=== PATIENT | female | born 1950 | race Caucasian/White ===

== ENCOUNTER → 2016-09-24 | Outpatient (CLI) | payer MEDICARE ==
[~2016-09-24] MED LIST: CALC-671 PO; CALC-78 PO; CEFD300C3 PO; CEPH500C PO; CHOL200018 PO; DICL75TA2 PO; GARL10002 PO; GLUC1CAP37 PO; GLUCOSAMINE; HYPR15DR5 OU; LEVO50TA6 PO; LISI1TAB10 PO; LISI40TA PO; LNS30CCR; LVT.05T PO; OLME40TA14; OMEP20CA12 PO
--- NOTE | 2016-09-24 14:09 | Diagnostic Imaging Report ---
PROCEDURE: CT chest without contrast. TECHNIQUE: Multiple contiguous axial images were obtained through the chest without the use of intravenous contrast. INDICATION: Followup nodules. COMPARISON: 09/13/15 FINDINGS: There are calcified granulomas seen in the lungs. Previously seen 3 mm nodule in the right lower lobe appears to be calcified also at this time with no concerning noncalcified pulmonary nodule noted. No significant consolidation or mass is seen either. There is minimal scarring in the inferior lingula without a change. Calcified granulomas in the right hilum and in the mediastinum also seen. No significantly enlarged lymph nodes are evident otherwise. No axillary lymphadenopathy is seen. Sections in the upper abdomen demonstrate cholecystectomy clips. The osseous structures demonstrate mild scoliosis convex to the right in the thoracic spine. IMPRESSION: Calcified granulomas. Minimal scarring in the inferior lingula. Dictated by: Dictated on workstation # [id number]
== END ==
LOC: RAD 13:18
PROVIDERS: ATTEND Nurse Practitioner Family
DX: J84.10 Pulmonary fibrosis, unspecified (principal)
CPT/HCPCS: 71250

== ENCOUNTER 2016-12-13 13:00 | Outpatient (RCR) | payer MEDICARE | END 2016-12-15 | disposition home or self-care (01) | LOC: PULM 13:00 | PROVIDERS: ATTEND Nurse Practitioner Family | DX: J44.9 Chronic obstructive pulmonary disease, unspecified (principal); R06.02 Shortness of breath; J30.9 Allergic rhinitis, unspecified | CPT/HCPCS: 99211 ==

== ENCOUNTER 2017-02-19 13:00 | Outpatient (RCR) | payer MEDICARE | END 2017-03-18 | disposition home or self-care (01) | LOC: PULM 13:00 | PROVIDERS: ATTEND Nurse Practitioner Family | DX: J44.9 Chronic obstructive pulmonary disease, unspecified (principal); R06.02 Shortness of breath; J30.9 Allergic rhinitis, unspecified ==

== ENCOUNTER → 2017-06-10 | Outpatient (CLI) | payer MEDICARE | LOC: CARD 12:26 | PROVIDERS: ATTEND Family Medicine | DX: R07.9 Chest pain, unspecified (principal); I34.0 Nonrheumatic mitral (valve) insufficiency | CPT/HCPCS: 93306 ==

== ENCOUNTER → 2017-06-11 | Outpatient (CLI) | payer MEDICARE ==
[~2017-06-11] MED LIST changes: +CATHETER FLUSH 10 ML SYR IV PRN; +REGADENOSON 0.4 MG/5 ML SYR (LEXISCAN) IV ONE
[2017-06-11 13:20] VITALS: BP 156/71
[2017-06-11 13:27] VITALS: BP 154/68
--- NOTE | 2017-06-12 11:17 | STRESS TEST ---
DATE OF SERVICE: 06/11/2017 RESTING AND POST REGADENOSON TECHNETIUM 99M TETROFOSMIN SPECT CT IMAGING ORDERING PHYSICIAN: Dr. Manriquez. PRIMARY PHYSICIAN: Dr. Manriquez. CLINICAL DIAGNOSIS: Chest pain. Baseline images were carried out after injection of 10.81 mCi of technetium-99m Tetrofosmin. This was followed by 0.4 mg regadenoson and 29.8 mCi of lawn and garden technician technetium-99m Tetrofosmin for stress imaging. The electrocardiogram showed sinus rhythm with nonspecific ST abnormality and occasional isolated premature ventricular contractions. She noted some shortness of breath with the regadenoson infusion and some shortness of breath, which resolved in a few minutes. Review of images at rest and following stress indicates a small amount of anteroseptal perfusion defect, which appears transient. Gated images show normal global left ventricular systolic function with normal regional wall motion. Left ventricular ejection fraction is calculated to be 78%. Left ventricular end diastolic volume is 28 mL. TID is absent (1.19). CONCLUSIONS: 1. The study is suggestive of a small amount of anteroseptal ischemia. 2. Normal regional wall motion. 3. Normal global left ventricular systolic function with a calculated ejection fraction of 78%. Job ID: [id number] DocumentID: [id number] Dictated Date: 06/12/2017 09:35:18 Food Taster Date: 06/12/2017 11:16:18 Dictated By: HUGO LUCAS MD, MA, FACP, FACC,
== END ==
LOC: CARD 11:37
PROVIDERS: ATTEND Family Medicine
DX: R07.9 Chest pain, unspecified (principal)
CPT/HCPCS: 78452; 93017

== ENCOUNTER 2017-06-25 09:59 | Day surgery (SDC) | payer MEDICARE ==
[2017-06-25] VITALS (11 sets, daily range): BP systolic 116–152; BP diastolic 48–66
[~2017-06-25] VITALS: Ht 154.9 cm; Wt 86.2 kg
[~2017-06-25 09:59] MED LIST changes: -CATHETER FLUSH 10 ML SYR IV PRN; -REGADENOSON 0.4 MG/5 ML SYR (LEXISCAN) IV ONE
[2017-06-25] MEDS ORDERED: NS IV 1000 ML 1,000 ML ONE (10:04)
[2017-06-25] MEDS ORDERED: HEParin (CATH LAB) 2,000 ML IV ONE (10:04)
[2017-06-25] MEDS ORDERED: NS IV 1000 ML 1,000 ML IV SCH ×2 (10:15→12:55)
[2017-06-25 10:36] LABS: HEMOGLOBIN 12.1 G/DL (11.5-16.0); MEAN PLATELET VOLUME 11.5 FL (7.4-10.4); RED BLOOD COUNT 4.09 10^6/uL (4.35-5.85); RED CELL DISTRIBUTION WIDTH 14.1 % (10.0-14.5)
[2017-06-25] MEDS ORDERED: PROP15DR OU (10:43)
[2017-06-25] MEDS ORDERED: CALC300T4 PO (10:43)
[2017-06-25] MEDS ORDERED: GARL10002 PO (10:43)
[2017-06-25] MEDS ORDERED: BUDE10.2 IH (10:43)
[2017-06-25] MEDS ORDERED: OMG1KC PO (10:43)
[2017-06-25] MEDS ORDERED: MONT10TA21 PO (10:43)
[2017-06-25] MEDS ORDERED: DICL75TA2 PO (10:43)
[2017-06-25] MEDS ORDERED: GLUC-113 PO (10:43)
[2017-06-25] MEDS ORDERED: CHOL10007 PO (10:43)
[2017-06-25] MEDS ORDERED: UMEC62.5 IH (10:43)
[2017-06-25] MEDS ORDERED: RT-ALBUINH IH (10:44)
[2017-06-25] MEDS ORDERED: CETI10TA20 PO (10:44)
[2017-06-25] MEDS ORDERED: ACET-2650 PO (10:45)
[2017-06-25 10:49] LABS: INR 0.9 (0.8-1.4); PROTHROMBIN TIME PATIENT 12.5 SEC (12.2-14.7)
[2017-06-25 11:00] LABS: ALANINE AMINOTRANSFERASE 13 U/L (0-55); ALBUMIN 4.5 GM/DL (3.2-4.5); ALKALINE PHOSPHATASE 87 U/L (40-136); BILIRUBIN,TOTAL 0.6 MG/DL (0.1-1.0); BUN/CREATININE RATIO 23; CALCIUM 9.9 MG/DL (8.5-10.1); CARBON DIOXIDE 29 MMOL/L (21-32); CHLORIDE 104 MMOL/L (98-107); CHOLESTEROL 209 MG/DL (< 200); CREATININE SERUM 0.75 MG/DL (0.60-1.30); GFR ESTIMATED > 60; GLUCOSE 93 MG/DL (70-105); HDL CHOLESTEROL 64 MG/DL (40-60); SODIUM 139 MMOL/L (135-145); TOTAL PROTEIN 7.1 GM/DL (6.4-8.2); TRIGLYCERIDES 130 MG/DL (<150); VLDL CHOLESTEROL 26 MG/DL (5-40)
[2017-06-25] MEDS ORDERED: diphenhydrAMINE 50 MG/ML INJ (BENADRYL) ONE (11:54)
[2017-06-25] MEDS ORDERED: MIDAZOLAM 5 MG/5 ML (VERSED) VIAL ONE (11:54)
[2017-06-25] MEDS ORDERED: fentaNYL INJECTION 100 MCG/2 ML AMP ONE (11:54)
[2017-06-25] MEDS ORDERED: LIDOCAINE 1% INJ 50 ML (XYLOCAINE) VIAL ONE (11:57)
--- NOTE | 2017-06-25 12:54 | Cardiac Procedure Note-CS/ASA ---
Pre-Procedure Note Pre-Op Procedure Note H&P Reviewed The H&P was reviewed, patient examined and no changes noted. Date H&P Reviewed: Jun 25, 2017 Time H&P Reviewed: 12:30 Conscious Sedation Pre-Proced Time Reviewed: 12:30 ASA Class: 3 Airway Mallampati Classification: ([place] appropriate class) I. II. III, IV Lungs Heart ASA score ASA 1: a normal healthy patient ASA 2: a patient with a mild systemic disease (mid diabetes, controlled hypertension, obesity ASA 3: a patient with a severe systemic disease that limits activity (angina , COPD, prior Myocardial infarction) ASA 4: a patient with an incapacitating disease that is a constant threat to life (CHF, renal failure) ASA 5: a moribund patient not expected to survive 24 hrs. (ruptured aneurysm) ASA 6: a declared brain patient whose organs are being harvested. For emergent operations, add the letter E after the classification Grade 2 Sedation Plan: Analgesia, Amnesia, Plan communicated to team members, Discussed options with patient/fam, Discussed risks with patient/fam Note The patient is an appropriate candidate to undergo the planned procedure, sedation, and anesthesia. The patient immediately re-assessed prior to indication. HUGO LUCAS MD FACP FAC CCDS Jun 25, 2017 12:54
--- NOTE | 2017-06-25 12:59 | Discharge Inst-Post CATH ---
Discharge Inst-CATH Post Cardiac Cath D/C Inst Follow Up/Plan F/u with Dr Arzate in 2 - 3 weeks CARDIAC CATH DISCHARGE INSTRUCTIONS *Hold Metformin for 48 hours post heart cath. ACTIVITY * Go Home directly and rest. * Limit activity of the leg (or wrist if it was used) for 7 days including aerobics, swimming, jogging, bicycling, etc. * Restrict stair-climbing for 7 days if possible, if not, climb up with your non -cath leg, then bring together on the same step. * Avoid lifting, pushing, pulling or excessive movement of the affected extremity for 7 days. * Customary sexual activity may be resumed after 2 days-use caution not to use a position that strains or causes pain to the affected extremity. * No driving for 24 hours. * NO SMOKING. * Avoid straining for bowel movements for 7 days. * Gentle walking on level ground is allowed. * Returning to work will depend on the type of procedure and the results. Your doctor will discuss this with you. CALL YOUR DOCTOR FOR ANY OF THE FOLLOWING: *If bleeding from the puncture site occurs- Apply gentle pressure to site with clean cloth and call your doctor or EMS. * If a knot or lump forms under the skin, increases in size, or causes pain. * If bruising appears to be worsening or moving further down your leg instead of disappearing. * Temperature above 101 F. CARE OF YOUR GROIN INCISION; * Bruising or purple discoloration of the skin near the puncture site is common. * You may shower only, no bathtub bathing for 5 days. Be careful to avoid slipping as your leg may feel stiff. * If a closure device was used on your femoral artery, please see the attached guide regarding care of the device and your leg. * REMOVE the dressing from your groin the next day after your procedure in the shower. CARE OF YOUR WRIST INCISION; * Bruising or purple discoloration of the skin near the puncture site is common. * You may shower. * DO NOT submerge wrist. * Remove dressing in 24 hours. HUGO ARZATE MD [facility] CCDS Jun 25, 2017 12:58
--- NOTE | 2017-06-25 12:59 | Discharge Inst-Cardiology ---
Discharge Inst-Cardiac Discharge Medications Continued Medications: Acetaminophen (Tylenol Arthritis) 650 Mg Tablet.er 1300 MG PO TID PRN for PAIN-MILD, TAB TAKES 2 (650MG) TABLETS Albuterol Sulfate (Ventolin Hfa) 1 Puff Puff 2 PUFF IH Q4H PRN for SHORTNESS OF BREATH, PUFF 1 PUFF = 90 MCG Budesonide/Formoterol Fumarate (Symbicort 160-4.5 Mcg Inhaler) 10.2 Gm Hfa.aer.ad 2 PUFF IH DAILY, INHALER Calcium Carbonate (Tums) 300 Mg Tab.chew 300 MG PO TID PRN for INDIGESTION, TAB Cetirizine HCl (Zyrtec) 10 Mg Tablet 10 MG PO HS, TAB Cholecalciferol (Vitamin D3) (Vitamin D3) 1,000 Unit Capsule 1000 UNIT PO DAILY, CAP Diclofenac Sodium (Diclofenac Sodium) 75 Mg Tablet.dr 75 MG PO DAILY, TAB Diclofenac Sodium (Diclofenac Sodium) 75 Mg Tablet.dr 75 MG PO HS PRN for ARTHRITIS PAIN, TAB Garlic (Garlic) 1,000 Mg Capsule 2000 MG PO DAILY, CAP TAKES 2 (1000MG) CAPSULES Gluc 2Kcl/Chondr/Eugenie Hy/Hy AC (Glucosamine & Chondroitin Cap) 1 Each Capsule 2 CAP PO DAILY, CAP Levothyroxine Sodium (Levothyroxine Sodium) 50 Mcg Tablet 50 MCG PO DAILY, TAB Lisinopril/Hydrochlorothiazide (Lisinopril-Hctz 20-25 mg Tab) 1 Each Tablet 1 TAB PO DAILY, TAB Montelukast Sodium (Singulair) 10 Mg Tablet 10 MG PO HS, TAB Gore 3 Polyunsat Fatty Acids (Fish Oil 1,000 mg Capsule) 1,000 Mg Cap 1000 MG PO DAILY, CAP Omeprazole (Omeprazole) 20 Mg Capsule.dr 20 MG PO DAILY, CAP Propylene Glycol/Peg 400 (Systane 0.3-0.4% Eye Drops) 15 Ml Drops 2 DROPS OU QID, DROPS Umeclidinium Cuthbert (Incruse Ellipta) 62.5 Mcg Blst.w.dev 1 PUFF IH DAILY HUGO LUCAS MD [facility] CCDS Jun 25, 2017 12:59
[2017-06-25] MEDS ORDERED: PATIENT MAY USE OWN MEDS, ALL PO SCH (13:00)
--- NOTE | 2017-06-25 15:05 | CARDIAC CATHETERIZATION ---
DATE OF SERVICE: 06/25/2017 The patient is a 67-year-old lady who has multiple coronary artery disease risk factors, nonspecific chest discomfort, and an abnormal stress test, which had indicated some anteroseptal ischemia. Given all of these data, cardiac catheterization was carried out today after having obtained an informed consent. PROCEDURE DESCRIPTION: She was brought to the cardiac catheterization laboratory in a fasting state. Right groin was prepared and draped in the usual sterile fashion, 1% lidocaine for local anesthesia. Modified Seldinger technique was used to advance a 5-Haitian sheath in right femoral artery. Angiography of the right femoral artery was carried out through the sheath. A 5-Haitian JL4 catheter was used for left coronary angiography. A 5-Haitian JR4 catheter was used for right coronary angiography. A 5-Haitian pigtail catheter was used for left heart catheterization and left ventricular angiography. Mynx was used to achieve hemostasis following sheath removal. She tolerated the procedure well. HEMODYNAMICS: Left ventricular end-diastolic pressure following coronary angiography was 13 mmHg. There is no significant pressure gradient on pullback across the aortic valve. Ascending aortic pressure was 140/65 with a mean of 100 mmHg. LEFT VENTRICULAR ANGIOGRAPHY: Left ventricular angiography was carried out in the right anterior oblique projection. Global left ventricular systolic function is normal. No regional wall abnormality is seen. The left ventricular ejection fraction is approximately 65%. No significant mitral regurgitation is seen. CORONARY ANGIOGRAPHY: Left main coronary artery, left anterior descending artery, left circumflex artery, right coronary artery all appear angiographically within normal limits. Right coronary artery is dominant. CONCLUSIONS: 1. No angiographically significant coronary artery disease. 2. Normal global left ventricular systolic function with ejection fraction of approximately 65%. 3. No significant mitral regurgitation. 4. Left ventricular end-diastolic pressure at the top limit of normal. DISCUSSION AND RECOMMENDATIONS: Based on the results of the study, it appears appropriate to continue a conservative approach. Risk factor modification has been reviewed with her. Myocardial perfusion imaging appears to have been a false positive study. Outpatient followup is advised. Job ID: [id number] DocumentID: [id number] Dictated Date: 06/25/2017 12:48:10 Ethanol Operations Manager Date: 06/25/2017 15:04:03 Dictated By: HUGO LUCAS MD, MA, FACP, FACC,
== END 2017-06-25 16:15 | disposition home or self-care (01) ==
LOC: CATH 09:59 → SURG 12:55 → CATH 16:15
PROVIDERS: ATTEND Internal Medicine Cardiovascular Disease
DX: R07.89 Other chest pain (principal); R94.39 Abnormal result of other cardiovascular function study; I10 Essential (primary) hypertension; E78.5 Hyperlipidemia, unspecified; R06.02 Shortness of breath; R73.01 Impaired fasting glucose; E03.9 Hypothyroidism, unspecified; J44.9 Chronic obstructive pulmonary disease, unspecified; E66.9 Obesity, unspecified; Z68.35 Body mass index [BMI] 35.0-35.9, adult; Z82.49 Family history of ischemic heart disease and other diseases of the circulatory system; Z87.891 Personal history of nicotine dependence; Z79.899 Other long term (current) drug therapy
CPT/HCPCS: 36415; 80053; 80061; 85027; 85610; 85730; 87081; 93458

== ENCOUNTER → 2017-07-16 | Outpatient (CLI) | payer MEDICARE ==
[~2017-07-16] MED LIST changes: +ACET-2650 PO; +BUDE10.2 IH; +CALC300T4 PO; +CETI10TA20 PO; +CHOL10007 PO; +GLUC-113 PO; +MONT10TA21 PO; +OMG1KC PO; +PROP15DR OU; +RT-ALBUINH IH; +UMEC62.5 IH
== END ==
LOC: RAD 11:41
PROVIDERS: ATTEND Internal Medicine Cardiovascular Disease
DX: I73.9 Peripheral vascular disease, unspecified (principal)
CPT/HCPCS: 93923

== ENCOUNTER → 2017-07-22 | Outpatient (CLI) | payer MEDICARE ==
--- NOTE | 2017-07-23 08:59 | Diagnostic Imaging Report ---
Digital mammogram. Indication: Bilateral screening with 3-D tomosynthesis. The study was compared to the prior exam of 11/10/2015, 09/06/2014 and 04/01/2012. At this time there are no current complaints. The current study was also evaluated with a Computer Aided Detection (CAD) system. FINDINGS: The fibroglandular tissue in both breasts is heterogeneously dense. This does limit the sensitivity of this exam. Overall, there does not appear to have been any significant change when compared to the prior study. No primary or secondary sign of malignancy is noted. IMPRESSION: There is no radiographic evidence for malignancy. ACR BI-RADS Category 1: Negative. Result letter will be mailed to the patient. Note: At least 10% of breast cancer is not imaged by mammography. Dictated by: Dictated on workstation # [id number]
== END ==
LOC: RAD 10:49
PROVIDERS: ATTEND Family Medicine
DX: Z12.31 Encounter for screening mammogram for malignant neoplasm of breast (principal)
CPT/HCPCS: 77067

== ENCOUNTER → 2017-10-03 | Outpatient (CLI) | payer MEDICARE ==
[~2017-10-03] MED LIST changes: +CATHETER FLUSH 10 ML SYR IV PRN; +IOHEXOL 350 MG/ML 100 ML (OMNIPAQUE 350) VIAL IV ONE; +NFBIOT1000 PO; +NS 250 ML (IVPB) BAG IV ONE; +PANT40TA3 PO; +RECEIVED CONTRAST (Hold Metformin) IV SCH
[2017-10-03 12:07] LABS: BUN/CREATININE RATIO 25; CREATININE SERUM 0.71 MG/DL (0.60-1.30); GFR ESTIMATED > 60
--- NOTE | 2017-10-03 13:28 | Diagnostic Imaging Report ---
PROCEDURE: CT chest with contrast only. TECHNIQUE: Multiple contiguous axial images were obtained through the chest after administration of intravenous contrast. INDICATION: COPD and shortness of air with mild chest pain in the center of the chest. Study is performed to further evaluate pulmonary nodules. Correlation is made with prior CT chest from 09/24/2016. FINDINGS: No axillary lymphadenopathy is seen. No hilar or mediastinal lymphadenopathy is detected. No pericardial or pleural fluid is identified. Calcified right hilar and subcarinal lymph nodes are again noted. Right middle lobe and right lower lobe calcified granulomas are unchanged. No noncalcified nodules are seen. There is some minimal scarring or atelectasis in the lingula. The upper abdomen is unremarkable. IMPRESSION: Stable CT of the chest when compared with exam from 09/24/2016. Calcified mediastinal nodes, right hilar nodes and granulomas are present consistent with prior granulomatous exposure. No noncalcified pulmonary nodules or masses are detected. Dictated by: Dictated on workstation # [id number]
== END ==
LOC: RAD 11:37
PROVIDERS: ATTEND Nurse Practitioner Family
DX: J44.9 Chronic obstructive pulmonary disease, unspecified (principal)
CPT/HCPCS: 36415; 71260; 82565; 84520

== ENCOUNTER 2017-10-14 14:00 | Outpatient (CLI) | payer MEDICARE ==
[~2017-10-14] VITALS: Ht 154.9 cm; Wt 86.2 kg
[~2017-10-14 14:00] MED LIST changes: -CATHETER FLUSH 10 ML SYR IV PRN; -IOHEXOL 350 MG/ML 100 ML (OMNIPAQUE 350) VIAL IV ONE; -NFBIOT1000 PO; -NS 250 ML (IVPB) BAG IV ONE; -PANT40TA3 PO; -RECEIVED CONTRAST (Hold Metformin) IV SCH
[2017-10-14] MEDS ORDERED: PANT40TA3 PO (15:28)
[2017-10-14] MEDS ORDERED: NFBIOT1000 PO (15:28)
== END 2017-10-14 16:00 | disposition home or self-care (01) ==
LOC: PREOP 14:00
PROVIDERS: ATTEND Surgery
DX: Z01.818 Encounter for other preprocedural examination (principal)

== ENCOUNTER 2017-10-22 10:12 | Day surgery (SDC) | payer MEDICARE ==
[~2017-10-22] VITALS: Ht 154.9 cm; Wt 86.2 kg
[~2017-10-22 10:12] MED LIST changes: +NFBIOT1000 PO; +PANT40TA3 PO
--- OUTSIDE RECORDS SUMMARY | 2017-10-22 10:18 | XMS REPORT | Continuity of Care Document ---
Author Author [facility] [address] Organization [facility] [address] Address Unknown Phone Unavailable Allergies Active Description Code Type Severity Reaction Onset Reported/Identified Relationship to Patient Clinical Status Yes nickel [id number] Drug Allergy Unknown N/A 05/23/2006 Medications There is no data. Problems Date Dx Coded Attending Type Code Diagnosis Diagnosed By 02/24/2013 ELLE MANRIQUEZ DO S Ot 719.45 JOINT PAIN-PELVIS 02/24/2013 NIC MANRIQUEZ DOLINE S Ot 724.2 LUMBAGO 02/24/2013 ELLE MANRIQUEZ DO S Ot V57.1 PHYSICAL THERAPY NEC 09/06/2014 Ot 719.46 09/06/2014 Ot 727.51 09/06/2014 Ot V76.12 09/06/2014 NICKY GAUTAM Ot 719.45 09/06/2014 ELLE MANRIQUEZ DO S Ot 721.3 09/06/2014 ELLE MANRIQUEZ DO S Ot 724.2 09/06/2014 JENNIFFER MANRIQUEZ DOQUELINE S Ot 729.5 09/06/2014 JENNIFFER MANRIQUEZ DOQUELINE S Ot 729.81 09/27/2014 BAILEY MART, KRYSTEN Murillo Ot V72.84 09/28/2014 BAILEY MART, KRYSTEN Murillo Ot V72.84 09/28/2014 BAILEY MART, KRYSTEN Murillo Ot V72.84 09/28/2014 BAILEY MART, KRYSTEN Murillo Ot V72.84 09/28/2014 BAILEY MART, KRYSTEN Murillo Ot V72.84 09/28/2014 BAILEY MART, KRYSTEN Murillo Ot V72.84 09/30/2014 ELLE MANRIQUEZ DO S Ot V76.12 10/05/2014 BAILEY MART, KRYSTEN Murillo Ot 244.9 10/05/2014 BAILEY MART, KRYSTEN Murillo Ot 401.9 10/05/2014 BAILEY MART, KRYSTEN M Ot 562.10 10/05/2014 BAILEY MART, KRYSTEN M Ot 715.90 10/05/2014 BAILEY MART, KRYSTEN M Ot V76.51 10/20/2014 BAILEY MART, KRYSTEN M Ot 244.9 10/20/2014 BAILEY MART, KRYSTEN M Ot 401.9 10/20/2014 BAILEY MART, KRYSTEN M Ot 562.10 10/20/2014 BAILEY MART, KRYSTEN M Ot 715.90 10/20/2014 BAILEY MART, KRYSTEN M Ot V76.51 11/08/2014 BAILEY MART, KRYSTEN M Ot 244.9 11/08/2014 BAILEY MART, KRYSTEN M Ot 401.9 11/08/2014 BAILEY MART, KRYSTEN M Ot 562.10 11/08/2014 BAILEY MART, KRYSTEN M Ot 715.90 11/08/2014 BAILEY MART, KRYSTEN M Ot V76.51 04/13/2015 Ot 719.46 04/13/2015 Ot 727.51 04/13/2015 Ot V76.12 04/13/2015 NICKY GAUTAM Ot 719.45 04/13/2015 ORENDER DO, ELLE S Ot 721.3 04/13/2015 ORENDER DO, ELLE S Ot 724.2 04/13/2015 ORENDER DO, ELLE S Ot 729.5 04/13/2015 ORENDER DO, ELLE S Ot 729.81 04/13/2015 ORENDER DO, ELLE S Ot V76.12 04/13/2015 BAILEY MART, KRYSTEN M Ot V72.84 04/13/2015 BAILEY MART, KRYSTEN M Ot 244.9 04/13/2015 BAILEY MART, KRYSTEN M Ot 401.9 04/13/2015 BAILEY MART, KRYSTEN M Ot 562.10 04/13/2015 BAILEY MART, KRYSTEN M Ot 715.90 04/13/2015 BAILEY MART, KRYSTEN M Ot V76.51 04/18/2015 GLORIA AHUJA DO Ot E03.9 HYPOTHYROIDISM, UNSPECIFIED 04/18/2015 GLORIA AHUJA DO Ot E87.6 HYPOKALEMIA 04/18/2015 GLORIA AHUJA DO Ot I10 ESSENTIAL (PRIMARY) HYPERTENSION 04/18/2015 GELLENDER DO, GLORIA Gr Ot J18.9 PNEUMONIA, UNSPECIFIED ORGANISM 04/18/2015 SHRUTHILENDER , GLORIA Gr Ot K44.9 DIAPHRAGMATIC HERNIA WITHOUT OBSTRUCTION 04/18/2015 GELLENDER DO, GLORIA Gr Ot K59.00 CONSTIPATION, UNSPECIFIED 04/18/2015 SHRUTHILENDER DO, GLORIA Gr Ot M25.512 PAIN IN LEFT SHOULDER 04/18/2015 SHRUTHILENDER DO, GLORIA Gr Ot Z87.891 PERSONAL HISTORY OF NICOTINE DEPENDENCE 05/04/2015 GELLENDER DO, GLORIA Gr Ot R06.2 05/12/2015 GELLENDER DO, GLORIA Gr Ot R06.2 05/12/2015 GELLENDER DO, GLORIA Gr Ot J18.9 05/13/2015 GELLENDER DO, GLORIA Gr Ot R06.2 05/19/2015 GELLENDER DO, GLORIA Gr Ot J18.9 05/23/2015 GELLENDER DO, GLORIA Gr Ot J18.9 05/26/2015 GELLENDER DO, GLORIA Gr Ot J18.9 06/02/2015 GELLENDER DO, GLORIA Gr Ot J18.9 06/13/2015 GELLENDER DO, GLORIA Gr Ot J18.9 06/23/2015 LAURA MURPHY APRN Ot E66.9 06/23/2015 LAURA MURPHY APRN Ot R06.02 06/29/2015 LAURA MURPHY APRN Ot E66.9 06/29/2015 LAURA MURPHY APRN Ot R06.02 07/15/2015 VANBECELAERE, JULIAN M CONVERSION MAN Ot R05 COUGH 07/15/2015 VANBECELAERE, JULIAN M CONVERSION MAN Ot R06.2 WHEEZING 08/03/2015 VANBECELAERE, JULIAN M CONVERSION MAN Ot R05 COUGH 08/03/2015 VANBECELAERE, JULIAN M CONVERSION MAN Ot R06.2 WHEEZING 08/12/2015 VANBECELAERE, JULIAN M CONVERSION MAN Ot R05 COUGH 08/12/2015 VANBECELAERE, JULIAN M CONVERSION MAN Ot R06.2 WHEEZING 09/14/2015 LAURA MURPHY APRN Ot J44.9 CHRONIC OBSTRUCTIVE PULMONARY DISEASE, U 09/14/2015 JEFFREY, LAURA E IN FLIGHT TECHNICIAN Ot J84.10 PULMONARY FIBROSIS, UNSPECIFIED 09/14/2015 MAGDALENA MURPHYINE E IN FLIGHT TECHNICIAN Ot R91.1 SOLITARY PULMONARY NODULE 09/16/2015 MAGDALENA MURPHYINE Toro IN FLIGHT TECHNICIAN Ot J44.9 CHRONIC OBSTRUCTIVE PULMONARY DISEASE, U 09/16/2015 MAGDALENA MURPHYINE E IN FLIGHT TECHNICIAN Ot J84.10 PULMONARY FIBROSIS, UNSPECIFIED 09/16/2015 MAGDALENA MURPHYINE E IN FLIGHT TECHNICIAN Ot R91.1 SOLITARY PULMONARY NODULE 09/19/2015 LAURA MURPHY IN FLIGHT TECHNICIAN Ot J44.9 CHRONIC OBSTRUCTIVE PULMONARY DISEASE, U 09/19/2015 MAGDALENA MURPHYINE Toro IN FLIGHT TECHNICIAN Ot J84.10 PULMONARY FIBROSIS, UNSPECIFIED 09/19/2015 LAURA MURPHY IN FLIGHT TECHNICIAN Ot R91.1 SOLITARY PULMONARY NODULE 10/06/2015 LAURA MURPHY IN FLIGHT TECHNICIAN Ot J44.9 CHRONIC OBSTRUCTIVE PULMONARY DISEASE, U 10/06/2015 MAGDALENA MURPHYINE E IN FLIGHT TECHNICIAN Ot J84.10 PULMONARY FIBROSIS, UNSPECIFIED 10/06/2015 LAURA MURPHY IN FLIGHT TECHNICIAN Ot R91.1 SOLITARY PULMONARY NODULE 10/13/2015 LAURA MURPHY IN FLIGHT TECHNICIAN Ot J44.9 CHRONIC OBSTRUCTIVE PULMONARY DISEASE, U 10/13/2015 LAURA MURPHY IN FLIGHT TECHNICIAN Ot J84.10 PULMONARY FIBROSIS, UNSPECIFIED 10/13/2015 LAURA MURPHY IN FLIGHT TECHNICIAN Ot R91.1 SOLITARY PULMONARY NODULE 12/02/2015 MAX WALKER IN FLIGHT TECHNICIAN Ot Z12.31 ENCNTR SCREEN MAMMOGRAM FOR MALIGNANT NE 09/17/2016 LAURA MURPHY IN FLIGHT TECHNICIAN Ot R91.1 SOLITARY PULMONARY NODULE 09/26/2016 LAURA MURPHY IN FLIGHT TECHNICIAN Ot J84.10 PULMONARY FIBROSIS, UNSPECIFIED 09/26/2016 LAURA MURPHY IN FLIGHT TECHNICIAN Ot J84.10 PULMONARY FIBROSIS, UNSPECIFIED 09/26/2016 LAURA MURPHY IN FLIGHT TECHNICIAN Ot J84.10 PULMONARY FIBROSIS, UNSPECIFIED 09/26/2016 LAURA MURPHY IN FLIGHT TECHNICIAN Ot J84.10 PULMONARY FIBROSIS, UNSPECIFIED 09/30/2016 LAURA MURPHY IN FLIGHT TECHNICIAN Ot J84.10 PULMONARY FIBROSIS, UNSPECIFIED 10/16/2016 LAURA MURPHY IN FLIGHT TECHNICIAN Ot J84.10 PULMONARY FIBROSIS, UNSPECIFIED 10/24/2016 LAURA MURPHY APRN Ot J84.10 PULMONARY FIBROSIS, UNSPECIFIED 11/26/2016 Ot V76.12 OTH SCREEN MAMMO-MALIGN NEOPLASM OF [place] 11/26/2016 ADHIKARIEZRA NICKY Chidi CONVERSION MAN Ot 719.45 JOINT PAIN-PELVIS 11/26/2016 ORENDER DO, ELLE S Ot 721.3 LUMBOSACRAL SPONDYLOSIS 11/26/2016 ORENDER DO, ELLE S Ot 724.2 LUMBAGO 11/26/2016 ORENDER DO, ELLE S Ot 729.5 PAIN IN LIMB 11/26/2016 ORENDER DO, ELLE S Ot 729.81 SWELLING OF LIMB 11/26/2016 ORENDER DO, ELLE S Ot V76.12 OTH SCREEN MAMMO-MALIGN NEOPLASM OF [place] 11/26/2016 BAILEY MART, KRYSTEN Murillo Ot V72.84 EXAM PRE-OPERATIVE NOS 11/26/2016 BAILEY MART, KRYSTEN Murillo Ot 244.9 HYPOTHYROIDISM NOS 11/26/2016 BAILEY MART, KRYSTEN Murillo Ot 401.9 HYPERTENSION NOS 11/26/2016 BAILEY MART, KRYSTEN Murillo Ot 562.10 DIVERTICULOSIS COLON (W/O MENT OF HEMORR 11/26/2016 BAILEY MART, KRYSTEN Murillo Ot 715.90 OSTEOARTHROS NOS-UNSPEC 11/26/2016 BAILEY MART, KRYSTEN Murillo Ot V76.51 SCREEN MAL NEOP-COLON 11/26/2016 GLORIA AHUJA DO Ot R06.2 WHEEZING 11/26/2016 GLORIA AHUJA DO Ot J18.9 PNEUMONIA, UNSPECIFIED ORGANISM 11/26/2016 GLORIA AHUJA DO Ot J18.9 PNEUMONIA, UNSPECIFIED ORGANISM 11/26/2016 LAURA MURPHY APRN Ot E66.9 OBESITY, UNSPECIFIED 11/26/2016 LAURA MURPHY APRN Ot R06.02 SHORTNESS OF BREATH 11/26/2016 GLORIA AHUJA DO Ot J18.9 PNEUMONIA, UNSPECIFIED ORGANISM 11/26/2016 JULIAN SIERRA CONVERSION MAN Ot R05 COUGH 11/26/2016 JULIAN SIERRA CONVERSION MAN Ot R06.2 WHEEZING 11/26/2016 LAURA MURPHY IN FLIGHT TECHNICIAN Ot J44.9 CHRONIC OBSTRUCTIVE PULMONARY DISEASE, U 11/26/2016 MAGDALENA MURPHYINE Toro IN FLIGHT TECHNICIAN Ot J84.10 PULMONARY FIBROSIS, UNSPECIFIED 11/26/2016 MAGDALENA MURPHYINE Toro IN FLIGHT TECHNICIAN Ot R91.1 SOLITARY PULMONARY NODULE 11/26/2016 MAGDALENA MURPHYINE Toro IN FLIGHT TECHNICIAN Ot J84.10 PULMONARY FIBROSIS, UNSPECIFIED 11/26/2016 MAX WALKER IN FLIGHT TECHNICIAN Ot Z12.31 ENCNTR SCREEN MAMMOGRAM FOR MALIGNANT NE 11/27/2016 MAGDALENA MURPHYINE E IN FLIGHT TECHNICIAN Ot J30.9 ALLERGIC RHINITIS, UNSPECIFIED 11/27/2016 MAGDALENA MURPHYINE E IN FLIGHT TECHNICIAN Ot J44.9 CHRONIC OBSTRUCTIVE PULMONARY DISEASE, U 11/27/2016 LAURA MURPHY IN FLIGHT TECHNICIAN Ot R06.02 SHORTNESS OF BREATH 12/15/2016 LAURA MURPHY IN FLIGHT TECHNICIAN Ot J30.9 ALLERGIC RHINITIS, UNSPECIFIED 12/15/2016 LAURA MURPHY IN FLIGHT TECHNICIAN Ot J44.9 CHRONIC OBSTRUCTIVE PULMONARY DISEASE, U 12/15/2016 LAURA MURPHY E IN FLIGHT TECHNICIAN Ot R06.02 SHORTNESS OF BREATH 12/19/2016 MAGDALENA MURPHYINE Toro IN FLIGHT TECHNICIAN Ot J30.9 ALLERGIC RHINITIS, UNSPECIFIED 12/19/2016 MAGDALENA MURPHYINE E IN FLIGHT TECHNICIAN Ot J44.9 CHRONIC OBSTRUCTIVE PULMONARY DISEASE, U 12/19/2016 MAGDALENA MURPHYINE E IN FLIGHT TECHNICIAN Ot R06.02 SHORTNESS OF BREATH 12/21/2016 MAGDALENA MURPHYINE Toro IN FLIGHT TECHNICIAN Ot J30.9 ALLERGIC RHINITIS, UNSPECIFIED 12/21/2016 LAURA MURPHY IN FLIGHT TECHNICIAN Ot J44.9 CHRONIC OBSTRUCTIVE PULMONARY DISEASE, U 12/21/2016 LAURA MURPHY IN FLIGHT TECHNICIAN Ot R06.02 SHORTNESS OF BREATH 02/08/2017 LAURA MURPHY IN FLIGHT TECHNICIAN Ot J30.9 ALLERGIC RHINITIS, UNSPECIFIED 02/08/2017 MAGDALENA MURPHYINE Toro IN FLIGHT TECHNICIAN Ot J44.9 CHRONIC OBSTRUCTIVE PULMONARY DISEASE, U 02/08/2017 MAGDALENA MURPHYINE Toro IN FLIGHT TECHNICIAN Ot R06.02 SHORTNESS OF BREATH 02/14/2017 MAGDALENA MURPHYINE E IN FLIGHT TECHNICIAN Ot J30.9 ALLERGIC RHINITIS, UNSPECIFIED 02/14/2017 LAURA MURPHY IN FLIGHT TECHNICIAN Ot J44.9 CHRONIC OBSTRUCTIVE PULMONARY DISEASE, U 02/14/2017 LAURA MURPHY IN FLIGHT TECHNICIAN Ot R06.02 SHORTNESS OF BREATH 03/18/2017 LAURA MURPHY IN FLIGHT TECHNICIAN Ot J30.9 ALLERGIC RHINITIS, UNSPECIFIED 03/18/2017 LAURA MURPHY IN FLIGHT TECHNICIAN Ot J44.9 CHRONIC OBSTRUCTIVE PULMONARY DISEASE, U 03/18/2017 LAURA MURPHY IN FLIGHT TECHNICIAN Ot R06.02 SHORTNESS OF BREATH 06/06/2017 Ot V76.12 OTH SCREEN MAMMO-MALIGN NEOPLASM OF [place] 06/06/2017 NICKY GAUTAM CONVERSION MAN Ot 719.45 JOINT PAIN-PELVIS 06/06/2017 ORENDER DO, ELLE S Ot 721.3 LUMBOSACRAL SPONDYLOSIS 06/06/2017 ORENDER DO, ELLE S Ot 724.2 LUMBAGO 06/06/2017 ORENDER DO, ELLE S Ot 729.5 PAIN IN LIMB 06/06/2017 ORENDER DO, ELLE S Ot 729.81 SWELLING OF LIMB 06/06/2017 ORENDER DO, ELLE S Ot V76.12 OTH SCREEN MAMMO-MALIGN NEOPLASM OF [place] 06/06/2017 BAILEY MART, KRYSTEN Murillo Ot V72.84 EXAM PRE-OPERATIVE NOS 06/06/2017 BAILEY MART, KRYSTEN Murillo Ot 244.9 HYPOTHYROIDISM NOS 06/06/2017 BAILEY MART, KRYSTEN Murillo Ot 401.9 HYPERTENSION NOS 06/06/2017 BAILEY MART, KRYSTEN Murillo Ot 562.10 DIVERTICULOSIS COLON (W/O MENT OF HEMORR 06/06/2017 BAILEY MART, KRYSTEN Murillo Ot 715.90 OSTEOARTHROS NOS-UNSPEC 06/06/2017 BAILEY MART, KRYSTEN Murillo Ot V76.51 SCREEN MAL NEOP-COLON 06/06/2017 GELLENDER DO, GLORIA A Ot R06.2 WHEEZING 06/06/2017 GELWENCESLAODER GLORIA CONKLIN Ot J18.9 PNEUMONIA, UNSPECIFIED ORGANISM 06/06/2017 SHRUTHILENDER GLORIA CONKLIN Ot J18.9 PNEUMONIA, UNSPECIFIED ORGANISM 06/06/2017 LAURA MURPHY IN FLIGHT TECHNICIAN Ot E66.9 OBESITY, UNSPECIFIED 06/06/2017 LAURA MURPHY IN FLIGHT TECHNICIAN Ot R06.02 SHORTNESS OF BREATH 06/06/2017 GELLENDER DO, GLORIA A Ot J18.9 PNEUMONIA, UNSPECIFIED ORGANISM 06/06/2017 JULIAN SIERRA CONVERSION MAN Ot R05 COUGH 06/06/2017 JULIAN SIERRA CONVERSION MAN Ot R06.2 WHEEZING 06/06/2017 LAURA MURPHY IN FLIGHT TECHNICIAN Ot J44.9 CHRONIC OBSTRUCTIVE PULMONARY DISEASE, U 06/06/2017 LAURA MURPHY IN FLIGHT TECHNICIAN Ot J84.10 PULMONARY FIBROSIS, UNSPECIFIED 06/06/2017 LAURA MURPHY IN FLIGHT TECHNICIAN Ot R91.1 SOLITARY PULMONARY NODULE 06/06/2017 LAURA MURPHY IN FLIGHT TECHNICIAN Ot J84.10 PULMONARY FIBROSIS, UNSPECIFIED 06/06/2017 MAX WALKER IN FLIGHT TECHNICIAN Ot Z12.31 ENCNTR SCREEN MAMMOGRAM FOR MALIGNANT NE 06/06/2017 LAURA MURPHY IN FLIGHT TECHNICIAN Ot J30.9 ALLERGIC RHINITIS, UNSPECIFIED 06/06/2017 LAURA MURPHY IN FLIGHT TECHNICIAN Ot J44.9 CHRONIC OBSTRUCTIVE PULMONARY DISEASE, U 06/06/2017 LAURA MURPHY IN FLIGHT TECHNICIAN Ot R06.02 SHORTNESS OF BREATH 06/12/2017 ORENDER DO, ELLE S Ot I34.0 NONRHEUMATIC MITRAL (VALVE) INSUFFICIENC 06/12/2017 ORENDER DO, ELLE S Ot R07.9 CHEST PAIN, UNSPECIFIED 06/12/2017 ORENDER DO, ELLE S Ot R07.9 CHEST PAIN, UNSPECIFIED 06/12/2017 ORENDER DO, ELLE S Ot R07.9 CHEST PAIN, UNSPECIFIED 06/16/2017 ORENDER DO, ELLE S Ot I34.0 NONRHEUMATIC MITRAL (VALVE) INSUFFICIENC 06/16/2017 ORENDER DO, ELLE S Ot R07.9 CHEST PAIN, UNSPECIFIED 06/25/2017 LANCE MART FACC, HUGO FACP CCDS Ot E03.9 HYPOTHYROIDISM, UNSPECIFIED 06/25/2017 LANCE MART FACC, HUGO FACP CCDS Ot E66.9 OBESITY, UNSPECIFIED 06/25/2017 LANCE MART FACC, HUGO FACP CCDS Ot E78.5 HYPERLIPIDEMIA, UNSPECIFIED 06/25/2017 LANCE MART FACC, HUGO FACP CCDS Ot I10 ESSENTIAL (PRIMARY) HYPERTENSION 06/25/2017 LANCE MART FACC, ALI FACP CCDS Ot J44.9 CHRONIC OBSTRUCTIVE PULMONARY DISEASE, U 06/25/2017 LANCE MART FACC, ALI FACP CCDS Ot R06.02 SHORTNESS OF BREATH 06/25/2017 LANCE MART FACC, ALI FACP CCDS Ot R07.89 OTHER CHEST PAIN 06/25/2017 LANCE MART FACC, ALI FACP CCDS Ot R73.01 IMPAIRED FASTING GLUCOSE 06/25/2017 LANCE MART FACC, ALI FACP CCDS Ot R94.39 ABNORMAL RESULT OF OTHER CARDIOVASCULAR 06/25/2017 LANCE MART FACC, ALI FACP CCDS Ot Z68.35 BODY MASS INDEX (BMI) 35.0-35.9, ADULT 06/25/2017 LANCE MART FACC, ALI FACP CCDS Ot Z79.899 OTHER [facility] (CURRENT) DRUG THERAPY 06/25/2017 LANCE MART FACC, ALI FACP CCDS Ot Z82.49 FAMILY HX OF ISCHEM HEART DIS AND OTH DI 06/25/2017 LANCE MART FACC, ALI FACP CCDS Ot Z87.891 PERSONAL HISTORY OF NICOTINE DEPENDENCE 06/26/2017 LANCE MART FACC, ALI FACP CCDS Ot E03.9 HYPOTHYROIDISM, UNSPECIFIED 06/26/2017 LANCE MART FACC, ALI FACP CCDS Ot E66.9 OBESITY, UNSPECIFIED 06/26/2017 LANCE MART FACC, ALI FACP CCDS Ot E78.5 HYPERLIPIDEMIA, UNSPECIFIED 06/26/2017 LANCE MART FACC, ALI FACP CCDS Ot I10 ESSENTIAL (PRIMARY) HYPERTENSION 06/26/2017 LANCE MART FACC, ALI FACP CCDS Ot J44.9 CHRONIC OBSTRUCTIVE PULMONARY DISEASE, U 06/26/2017 LANCE MART FACC, ALI FACP CCDS Ot R06.02 SHORTNESS OF BREATH 06/26/2017 LANCE MART FACC, ALI FACP CCDS Ot R07.89 OTHER CHEST PAIN 06/26/2017 LANCE MART FACC, ALI FACP CCDS Ot R73.01 IMPAIRED FASTING GLUCOSE 06/26/2017 LANCE MART FACC, ALI FACP CCDS Ot R94.39 ABNORMAL RESULT OF OTHER CARDIOVASCULAR 06/26/2017 LANCE MART FACC, ALI FACP CCDS Ot Z68.35 BODY MASS INDEX (BMI) 35.0-35.9, ADULT 06/26/2017 LANCE MART FACC, HUGO [facility] CCDS Ot Z79.899 OTHER CLINICAL SUPPORT SPECIALIST (CURRENT) DRUG THERAPY 06/26/2017 LANCE MART FACC, HUGO [facility] CCDS Ot Z82.49 FAMILY HX OF ISCHEM HEART DIS AND OTH DI 06/26/2017 LANCE MART FACC, HUGO [facility] CCDS Ot Z87.891 PERSONAL HISTORY OF NICOTINE DEPENDENCE 07/05/2017 ORENDER DO, ELLE S Ot I34.0 NONRHEUMATIC MITRAL (VALVE) INSUFFICIENC 07/05/2017 ORENDER DO, ELLE S Ot R07.9 CHEST PAIN, UNSPECIFIED 07/05/2017 ORENDER DO, ELLE S Ot R07.9 CHEST PAIN, UNSPECIFIED 07/11/2017 ORENDER DO, ELLE S Ot I34.0 NONRHEUMATIC MITRAL (VALVE) INSUFFICIENC 07/11/2017 ORENDER DO, ELLE S Ot R07.9 CHEST PAIN, UNSPECIFIED 07/11/2017 ORENDER DO, ELLE S Ot R07.9 CHEST PAIN, UNSPECIFIED 07/17/2017 ORENDER DO, ELLE S Ot Z12.31 ENCNTR SCREEN MAMMOGRAM FOR MALIGNANT NE 07/23/2017 ORENDER DO, ELLE S Ot Z12.31 ENCNTR SCREEN MAMMOGRAM FOR MALIGNANT NE 08/06/2017 LANCE FELIPE, HUGO [facility] CCDS Ot I73.9 PERIPHERAL VASCULAR DISEASE, UNSPECIFIED 08/14/2017 LANCE MART FACC, HUGO [facility] CCDS Ot I73.9 PERIPHERAL VASCULAR DISEASE, UNSPECIFIED 08/14/2017 ORENDER DO, ELLE S Ot Z12.31 ENCNTR SCREEN MAMMOGRAM FOR MALIGNANT NE 10/01/2017 NICKY GAUTAM CONVERSION MAN Ot 719.45 JOINT PAIN-PELVIS 10/01/2017 ORENDER DO, ELLE S Ot 721.3 LUMBOSACRAL SPONDYLOSIS 10/01/2017 ORENDER DO, ELLE S Ot 724.2 LUMBAGO 10/01/2017 ORENDER DO, ELLE S Ot 729.5 PAIN IN LIMB 10/01/2017 ORENDER DO, ELLE S Ot 729.81 SWELLING OF LIMB 10/01/2017 ELLE MANRIQUEZ DO Ot V76.12 OTH SCREEN MAMMO-MALIGN NEOPLASM OF [place] 10/01/2017 BAILEY MART, KRYSTEN Murillo Ot V72.84 EXAM PRE-OPERATIVE NOS 10/01/2017 BAILEY MART, KRYSTEN M Ot 244.9 HYPOTHYROIDISM NOS 10/01/2017 BAILEY MART, KRYSTEN Murillo Ot 401.9 HYPERTENSION NOS 10/01/2017 BAILEY MART, KRYSTEN Murillo Ot 562.10 DIVERTICULOSIS COLON (W/O MENT OF HEMORR 10/01/2017 BAILEY MART, KRYSTEN Murillo Ot 715.90 OSTEOARTHROS NOS-UNSPEC 10/01/2017 BAILEY MART, KRYSTEN Murillo Ot V76.51 SCREEN MAL NEOP-COLON 10/01/2017 GLORIA AHUJA DO Ot R06.2 WHEEZING 10/01/2017 GLORIA AHUJA DO Ot J18.9 PNEUMONIA, UNSPECIFIED ORGANISM 10/01/2017 GLORIA AHUJA DO Ot J18.9 PNEUMONIA, UNSPECIFIED ORGANISM 10/01/2017 LAURA MURPHY APRN Ot E66.9 OBESITY, UNSPECIFIED 10/01/2017 LAURA MURPHY APRN Ot R06.02 SHORTNESS OF BREATH 10/01/2017 GLORIA AHUJA DO Ot J18.9 PNEUMONIA, UNSPECIFIED ORGANISM 10/01/2017 VANVERÓNICAELAERE, JULIAN M CONVERSION MAN Ot R05 COUGH 10/01/2017 VANBECELAERE JULIAN M CONVERSION MAN Ot R06.2 WHEEZING 10/01/2017 LAURA MURPHY APRN Ot J44.9 CHRONIC OBSTRUCTIVE PULMONARY DISEASE, U 10/01/2017 LAURA MURPHY APRN Ot J84.10 PULMONARY FIBROSIS, UNSPECIFIED 10/01/2017 LAURA MURPHY APRN Ot R91.1 SOLITARY PULMONARY NODULE 10/01/2017 LAURA MURPHY APRN Ot J84.10 PULMONARY FIBROSIS, UNSPECIFIED 10/01/2017 MAX WALKER IN FLIGHT TECHNICIAN Ot Z12.31 ENCNTR SCREEN MAMMOGRAM FOR MALIGNANT NE 10/01/2017 LAURA MURPHY APRN Ot J30.9 ALLERGIC RHINITIS, UNSPECIFIED 10/01/2017 LAURA MURPHY APRN Ot J44.9 CHRONIC OBSTRUCTIVE PULMONARY DISEASE, U 10/01/2017 LAURA MURPHY APRN Ot R06.02 SHORTNESS OF BREATH 10/01/2017 ELLE MANRIQUEZ DO Ot I34.0 NONRHEUMATIC MITRAL (VALVE) INSUFFICIENC 10/01/2017 ELLE MANRIQUEZ DO Ot R07.9 CHEST PAIN, UNSPECIFIED 10/01/2017 ELLE MANRIQUEZ DO Ot R07.9 CHEST PAIN, UNSPECIFIED 10/01/2017 ELLE MANRIQUEZ DO Ot Z12.31 ENCNTR SCREEN MAMMOGRAM FOR MALIGNANT NE 10/01/2017 LANCE MART FACC, HUGO SMITH CCDS Ot I73.9 PERIPHERAL VASCULAR DISEASE, UNSPECIFIED 10/01/2017 LAURA MURPHY APRN Ot G47.10 HYPERSOMNIA, UNSPECIFIED 10/04/2017 LAURA MURPHY APRN Ot J44.9 CHRONIC OBSTRUCTIVE PULMONARY DISEASE, U Procedures There is no data. Results Test Result Range HEP C ANTIBODY - 01/19/17 09:38 HEPATITIS C ANTIBODY NON-REACTIVE NON-REACTIVE SIGNAL TO CUT-OFF 0.02 <1.00 Automated blood complete blood count (hemogram) panel - 06/25/17 10:28 Blood leukocytes automated count (number/volume) 5.0 10*3/uL 4.3-11.0 Blood erythrocytes automated count (number/volume) 4.09 10*6/uL 4.35-5.85 Venous blood hemoglobin measurement (mass/volume) 12.1 g/dL 11.5-16.0 Blood hematocrit (volume fraction) 37 % 35-52 Automated erythrocyte mean corpuscular volume 89 [foz_us] 80-99 Automated erythrocyte mean corpuscular hemoglobin (mass per erythrocyte) 30 pg 25-34 Automated erythrocyte mean corpuscular hemoglobin concentration measurement ( mass/volume) 33 g/dL 32-36 Automated erythrocyte distribution width ratio 14.1 % 10.0-14.5 Automated blood platelet count (count/volume) 255 10*3/uL 130-400 Automated blood platelet mean volume measurement 11.5 [foz_us] 7.4-10.4 PT panel in platelet poor plasma by coagulation assay - 06/25/17 10:28 Prothrombin time (PT) in platelet poor plasma by coagulation assay 12.5 s 12.2-14.7 INR in platelet poor plasma or blood by coagulation assay 0.9 0.8-1.4 Activated partial thromboplastin time (aPTT) in platelet poor plasma bycoagulation assay - 06/25/17 10:28 Activated partial thromboplastin time (aPTT) in platelet poor plasma bycoagulation assay 30 s 24-35 Comprehensive metabolic panel - 06/25/17 10:28 Serum or plasma sodium measurement (moles/volume) 139 mmol/L 135-145 Serum or plasma potassium measurement (moles/volume) 4.0 mmol/L 3.6-5.0 Serum or plasma chloride measurement (moles/volume) 104 mmol/L 98-107 Carbon dioxide 29 mmol/L 21-32 Serum or plasma anion gap determination (moles/volume) 6 mmol/L 5-14 Serum or plasma urea nitrogen measurement (mass/volume) 17 mg/dL 7-18 Serum or plasma creatinine measurement (mass/volume) 0.75 mg/dL 0.60-1.30 Serum or plasma urea nitrogen/creatinine mass ratio 23 NRG Serum or plasma creatinine measurement with calculation of estimated glomerular filtration rate > NRG Serum or plasma glucose measurement (mass/volume) 93 mg/dL 70-105 Serum or plasma calcium measurement (mass/volume) 9.9 mg/dL 8.5-10.1 Serum or plasma total bilirubin measurement (mass/volume) 0.6 mg/dL 0.1-1.0 Serum or plasma alkaline phosphatase measurement (enzymatic activity/volume) 87 U/L 40-136 Serum or plasma aspartate aminotransferase measurement (enzymatic activity/ volume) 17 U/L 5-34 Serum or plasma alanine aminotransferase measurement (enzymatic activity/volume ) 13 U/L 0-55 Serum or plasma protein measurement (mass/volume) 7.1 g/dL 6.4-8.2 Serum or plasma albumin measurement (mass/volume) 4.5 g/dL 3.2-4.5 Lipid 1996 panel - 06/25/17 10:28 Serum or plasma triglyceride measurement (mass/volume) 130 mg/dL <150 Serum or plasma cholesterol measurement (mass/volume) 209 mg/dL < 200 Serum or plasma cholesterol in HDL measurement (mass/volume) 64 mg/ dL 40-60 Cholesterol in LDL [mass/volume] in serum or plasma by direct assay 121 mg/dL 1-129 Serum or plasma cholesterol in VLDL measurement (mass/volume) 26 mg/ dL 5-40 Methicillin resistant Staphylococcus aureus (MRSA) screening culture - 10:28 Methicillin resistant Staphylococcus aureus (MRSA) screening culture NEG NRG [id number] - 10/03/17 11:50 Serum or plasma urea nitrogen measurement (mass/volume) 18 mg/dL 7-18 Serum or plasma creatinine measurement (mass/volume) 0.71 mg/dL 0.60-1.30 Serum or plasma urea nitrogen/creatinine mass ratio 25 NRG Serum or plasma creatinine measurement with calculation of estimated glomerular filtration rate > NRG Encounters ACCT No. Visit Date/Time Discharge Status Pt. Type Provider Facility Loc./Unit Complaint [id number] 10/03/2017 11:37:00 10/03/2017 23:59:59 CLS Outpatient LAURA MURPHY APRN [facility] [address] RAD COPD,SOB [id number] 09/30/2017 10:07:00 09/30/2017 23:59:59 CLS Preadmit LAURA MURPHY APRN [facility] [address] SLEEP SLEEP DISORDER, PARASOMNIA,HYPERSOMNIA [id number] 07/22/2017 10:49:00 07/22/2017 23:59:59 CLS Outpatient ELLE MANRIQUEZ DO S [facility] [address] RAD SCREENING [id number] 07/16/2017 11:41:00 07/16/2017 23:59:59 CLS Outpatient HUGO LUCAS MD, FACC, FACP CCDS [facility] [address] RAD I73.9 CLAUDICATION [id number] 06/25/2017 09:59:00 06/25/2017 16:15:00 DIS Outpatient HUGO LUCAS MD, FACC, FACP CCDS [facility] [address] CATH CHEST DISCOMFORT,ABN STRESS TEST [id number] 06/11/2017 11:37:00 06/11/2017 23:59:59 CLS Outpatient ELLE MANRIQUEZ DO S [facility] [address] CARD CHEST PAIN [id number] 06/10/2017 12:26:00 06/10/2017 23:59:59 CLS Outpatient NIC MANRIQUEZ DOLINE S [facility] [address] CARD CHEST PAIN [id number] 03/19/2017 08:15:00 03/19/2017 23:59:59 CLS Preadmit LAURA MURPHY IN FLIGHT TECHNICIAN [facility] [address] PULM J44.9 COPD [id number] 02/19/2017 13:00:00 03/18/2017 00:01:00 DIS Outpatient LAURA MURPHY IN FLIGHT TECHNICIAN [facility] [address] PULM J44.9 COPD [id number] 12/13/2016 13:00:00 12/15/2016 00:01:00 DIS Outpatient LAURA MURPHY IN FLIGHT TECHNICIAN [facility] [address] PULM J44.9 COPD [id number] 09/24/2016 13:18:00 09/24/2016 23:59:59 CLS Outpatient LAURA MURPHY IN FLIGHT TECHNICIAN [facility] [address] RAD NODULE OF RIGHT LUNG [id number] 11/10/2015 09:07:00 11/10/2015 23:59:59 CLS Outpatient MAX WALKER Shaylee IN FLIGHT TECHNICIAN [facility] [address] RAD SCREENING [id number] 09/13/2015 07:47:00 09/13/2015 23:59:59 CLS Outpatient LAURA MURPHY IN FLIGHT TECHNICIAN [facility] [address] RAD NODULE OF RIGHT LUNG, COPD, SOB [id number] 07/13/2015 17:22:00 07/13/2015 23:59:59 CLS Outpatient JULIAN SIERRA CONVERSION MAN [facility] [address] RAD COUGH,WHEEZING [id number] 06/03/2015 12:22:00 06/03/2015 23:59:59 CLS Outpatient LAURA MURPHY IN FLIGHT TECHNICIAN [facility] [address] RT SOB,DYSPNEA [id number] 05/11/2015 07:27:00 05/11/2015 23:59:59 CLS Outpatient GLORIA AHUJA DO [facility] [address] RAD PNEUMONIA [id number] 04/28/2015 07:40:00 04/28/2015 23:59:59 CLS Outpatient GLORIA AHUJA DO [facility] [address] RAD PNEUMONIA [id number] 04/22/2015 07:54:00 04/22/2015 23:59:59 CLS Outpatient GLORIA AHUJA DO [facility] [address] RAD PNEUMONIA [id number] 04/13/2015 10:51:00 04/18/2015 10:20:00 DIS Inpatient GLORIA AHUJA DO [facility] [address] 4TH PNEUMONIA [id number] 04/12/2015 16:08:00 04/12/2015 23:59:59 CLS Outpatient GLORIA AHUJA DO [facility] [address] RAD SHORT OF BREATH, WHEEZING [id number] 09/27/2014 07:11:00 09/27/2014 23:59:59 CLS Outpatient KRYSTEN AVALOS MD [facility] [address] SDC SCREENING [id number] 09/23/2014 06:46:00 09/23/2014 23:59:59 CLS Outpatient KRYSTEN AVALOS MD [facility] [address] PREOP SCREENING [id number] 09/06/2014 11:32:00 09/06/2014 23:59:59 CLS Outpatient NIC MANRIQUEZ DOLINE S [facility] [address] RAD SCREENING [id number] 03/20/2013 11:30:00 03/20/2013 23:59:59 CLS Outpatient JENNIFFER MANRIQUEZ DOQUELINE S [facility] [address] RAD CALF PAIN,SWELLING [id number] 01/30/2013 11:17:00 02/24/2013 14:10:00 DIS Outpatient JENNIFFER MANRIQUEZ DOQUELINE S [facility] [address] REHAB LOW BACK AND RIGHT HIP PAIN [id number] 12/23/2012 15:22:00 12/23/2012 23:59:59 CLS Outpatient JENNIFFER MANRIQUEZ DOQUELINE S [facility] [address] RAD LOWER BACK PAIN [id number] 12/22/2012 08:21:00 12/22/2012 23:59:59 CLS Outpatient KRISTIN CONKLIN ELLE S [facility] [address] RAD LOWER BACK PAIN [id number] 12/05/2012 09:11:00 12/05/2012 23:59:59 CLS Outpatient NICKY GAUTAM [facility] [address] RAD R HIP PAIN [id number] 10/22/2017 12:30:00 PEN Preadmit KINGARUNA COLON DO [facility] [address] ENDO EPIGASTRIC PAIN [id number] 09/06/2014 11:37:00 Document Registration [id number] 02/21/2011 13:01:00 Document Registration 05/08/15 09/16/2017 16:33:45 09/16/2017 23:59:59 CLS Outpatient Elle Manriquez [id number] 01/19/2017 09:15:00 01/19/2017 23:59:59 CLS Outpatient [facility]Z [facility] [id number] 01/19/2017 09:15:00 Document Registration [id number] 09/27/2014 07:11:41 ACT Document Registration
--- OUTSIDE RECORDS SUMMARY | 2017-10-22 10:18 | XMS REPORT ---
Author Author JOSUE COLÓN [facility] Address [address] [place] [address] Care Team Providers Care Compliance Auditor Name Role Phone JOSUE COLÓN Unavailable PROBLEMS Unknown Problems ALLERGIES No Information SOCIAL HISTORY Never Assessed PLAN OF CARE VITAL SIGNS MEDICATIONS Unknown Medications RESULTS No Results PROCEDURES No Known procedures IMMUNIZATIONS No Known Immunizations
--- OUTSIDE RECORDS SUMMARY | 2017-10-22 10:18 | XMS REPORT ---
Author Author PAOLA FINNEGAN Organization [facility] Address [address] [place] [address] Care Team Providers Care C Software Developer Name Role Phone PAOLA FINNEGAN Unavailable PROBLEMS Unknown Problems ALLERGIES No Information ENCOUNTERS Encounter Location Date Diagnosis [facility] [id number] [address] Jan, Exposure to hepatitis C Z20.5 [facility] [id number], [place] [address] Apr, Encounter for Zostavax administration Z23 and Encounter for immunization Z23 [facility] [id number] [address] Jan, [facility] [id number] [address] Jan, IMMUNIZATIONS No Known Immunizations SOCIAL HISTORY Never Assessed REASON FOR VISIT Lab (walk-in) PLAN OF CARE VITAL SIGNS MEDICATIONS Unknown Medications RESULTS Name Result Date Reference Range HEP C ANTIBODY 2017-01-19 HEPATITIS C ANTIBODY NON-REACTIVE NON-REACTIVE SIGNAL TO CUT-OFF 0.02 <1.00 PROCEDURES Procedure Date Ordered Result Body Site LAB NOT BILLED BY [facility] Jan 19, 2017 MARILUZ, ROUTINE* Jan 19, 2017 INSTRUCTIONS MEDICATIONS ADMINISTERED No Known Medications
[2017-10-22] MEDS ORDERED: LACTATED RINGERS 1,000 ML IV STA (10:21)
[2017-10-22] MEDS ORDERED: LACTATED RINGERS 1,000 ML IV ONE (10:30)
[2017-10-22 10:40] VITALS: BP 135/58
--- NOTE | 2017-10-22 10:47 | Progress Note-Pre Operative ---
Pre-Operative Progress Note H&P Reviewed The H&P was reviewed, patient examined and no changes noted. Date Seen by Provider: Oct 22, 2017 Time Seen by Provider: 10:47 Date H&P Reviewed: Oct 22, 2017 Time H&P Reviewed: 10:47 Pre-Operative Diagnosis: epigastric abdominal pain ARUNA KING DO Oct 22, 2017 10:47
[2017-10-22] MEDS ORDERED: PROPOFOL INJECTION 50 ML IV ONE (11:21)
[2017-10-22] MEDS ORDERED: MIDAZOLAM 2 MG/2 ML (VERSED) VIAL ONE (11:22)
--- NOTE | 2017-10-22 11:41 | Progress Note-Post Operative ---
Post-Operative Progess Note Surgeon (s)/Hris Specialist (s) Surgeon ARUNA KING DO Hris Specialist: na Pre-Operative Diagnosis epigastric abdominal pain Post-Operative Diagnosis small hiatal hernia, slight gastiritis Procedure & Operative Findings Date of Procedure 10/22/17 Procedure Performed/Findings egd c biopsies Anesthesia Type per railcar carpenter Estimated Blood Loss Estimated blood loss (mL): none Specimens/Packing Specimens Removed antrum, body ARUNA KING DO Oct 22, 2017 11:41
[2017-10-22] MEDS ORDERED: HURRICAINE EXT TUBE (BENZOCAINE) ONE (11:44)
--- NOTE | 2017-10-22 11:44 | Discharge Inst-Simple/Standard ---
Discharge Inst-Standard Patient Instructions/Follow Up Plan of Care/Instructions/FU: 2 weeks Faustino Activity as Tolerated: Yes Discharge Diet: Regular Diet ARUNA KING DO Oct 22, 2017 11:44
[2017-10-22] MEDS ORDERED: HURRICAINE EXT TUBE (BENZOCAINE) XX ONE (12:00)
[2017-10-22 12:10] VITALS: BP 140/64
[2017-10-22 12:35] VITALS: BP 139/69
[2017-10-22 12:53] VITALS: BP 139/69
--- NOTE | 2017-10-22 13:10 | Anesthesia-General Post-Op ---
MAC Patient Condition Mental Status/LOC: Same as Preop Cardiovascular: Satisfactory Nausea/Vomiting: Absent Respiratory: Satisfactory Pain: Controlled Complications: Absent Post Op Complications Complications None Follow Up Care/Instructions Patient Instructions None needed. Anesthesiology Discharge Order Discharge Order Patient is doing well, no complaints, stable vital signs, no apparent adverse anesthesia problems. No complications reported per nursing. OWEN GUARDADO CRNA Oct 22, 2017 13:10
--- NOTE | 2017-10-22 21:48 | OPERATIVE REPORT ---
DATE OF SERVICE: 10/22/2017 PREOPERATIVE DIAGNOSIS: Epigastric abdominal pain. POSTOPERATIVE DIAGNOSES: Small hiatal hernia, slight gastritis. PROCEDURE: EGD with biopsies. SURGEON: Aruna Harmon DO ANESTHESIA: Per ENGINEERING TEST SPECIALIST. ESTIMATED BLOOD LOSS: None. COMPLICATIONS: None. SPECIMENS: Antrum and body. INDICATIONS: The patient is a 67-year-old female who has been having epigastric abdominal pain. No improvement on trying different medications. She was explained risks and benefits of procedure and wished to proceed with procedure. Consent was signed in the chart. PROCEDURE IN DETAIL: The patient was taken to the endoscopy suite, placed in left lateral recumbent position. Timeout was performed. Scope was inserted in the mouth, down the esophagus, stomach and into the duodenum without difficulty. There were no polyps, masses or ulcerations within the duodenum. Scope was then slowly retracted back into the stomach where it was further insufflated. Slight erythematous changes may be some slight gastritis present. Biopsy of the antrum and also the body were obtained. Scope was retroflexed noting a small hiatal hernia. No other pathology noted. Scope was returned to its normal position, slowly withdrawn to the distal esophagus, which had normal appearance. Scope was then slowly retracted back to completely remove, noting no other pathology. The patient tolerated the procedure well without any complications. She was taken to the recovery room in stable condition. RECOMMENDATIONS: The patient will continue on current medication. We will await biopsies. The patient to follow up in the office in two to three weeks. Job ID: [id number] DocumentID: [id number] Dictated Date: 10/22/2017 11:41:18 Staff Development Coordinator Date: 10/22/2017 21:47:34 Dictated By: ARUNA HARMON DO
== END 2017-10-22 12:40 | disposition home or self-care (01) ==
LOC: ENDO 10:12
PROVIDERS: ATTEND Surgery
DX: K21.9 Gastro-esophageal reflux disease without esophagitis (principal); K44.9 Diaphragmatic hernia without obstruction or gangrene; K29.70 Gastritis, unspecified, without bleeding; I10 Essential (primary) hypertension; J44.9 Chronic obstructive pulmonary disease, unspecified; J45.909 Unspecified asthma, uncomplicated; Z87.891 Personal history of nicotine dependence; Z79.899 Other long term (current) drug therapy

== ENCOUNTER 2017-10-23 19:57 | Outpatient (CLI) | payer MEDICARE | END 2017-10-24 06:09 | disposition home or self-care (01) | LOC: SLEEP 19:57 | PROVIDERS: ATTEND Nurse Practitioner Family | DX: G47.10 Hypersomnia, unspecified (principal); G47.50 Parasomnia, unspecified; E66.9 Obesity, unspecified | CPT/HCPCS: 95810 ==

== ENCOUNTER → 2018-02-03 | Outpatient (CLI) | payer MEDICARE ==
--- NOTE | 2018-02-03 14:49 | Diagnostic Imaging Report ---
INDICATION: Chronic back pain. FINDINGS: There is grade 1 anterolisthesis of L3 on L4 and L4 on L5. Posterior cortices off set 5 mm and 11 mm respectively. Degenerative disc space narrowing is most severe at the L4-L5 level. There is trace grade 1 retrolisthesis of L5 on S1 of about 3 mm. Lumbar statures are normal. There is hypertrophic sclerotic facet arthrosis throughout the lumbar spine. The partially visualized right hip is replaced, and there are clips at the gallbladder fossa. IMPRESSION: Multilevel grade 1 lower lumbar and lumbosacral degenerative listhesis. Normal lumbar statures. No acute bony abnormality. Spondylosis and facet arthrosis. Owing to the severity of disease and the degree of malalignment, MRI may be of benefit as further evaluation, particularly if there is suspicion for stenosis or radiculopathy. Dictated by: Dictated on workstation # [id number]
--- NOTE | 2018-02-03 14:56 | Diagnostic Imaging Report ---
INDICATION: Chronic back pain. FINDINGS: Right hip prosthesis projects in anatomic alignment. No fracture, dislocation, hardware disruption, or bony erosion. IMPRESSION: No acute appearing abnormality. Dictated by: Dictated on workstation # [id number]
== END ==
LOC: RAD 12:36
PROVIDERS: ATTEND Chiropractor
DX: M47.26 Other spondylosis with radiculopathy, lumbar region (principal); M46.86 Other specified inflammatory spondylopathies, lumbar region; M43.17 Spondylolisthesis, lumbosacral region; M79.10 Myalgia, unspecified site; M99.02 Segmental and somatic dysfunction of thoracic region; M99.03 Segmental and somatic dysfunction of lumbar region; M99.04 Segmental and somatic dysfunction of sacral region; Z96.641 Presence of right artificial hip joint
CPT/HCPCS: 72100; 72170

== ENCOUNTER → 2018-06-16 | Outpatient (CLI) | payer MEDICARE ==
--- NOTE | 2018-06-16 15:37 | Diagnostic Imaging Report ---
PROCEDURE: US Renal Bilateral. TECHNIQUE: Multiple real-time grayscale images were obtained over the kidneys in various projections bilaterally. INDICATION: Renal cyst. COMPARISON: Correlation is made with recent MRI of the lumbar spine from 04/07/2018. FINDINGS: Right kidney measures 9.5 x 4.7 x 5.0 cm and the left kidney measures 11.5 x 5.4 x 6.7 cm. Cortical thickness and echogenicity appears normal. Left kidney does contain a cyst measuring approximately 2.5 x 2.8 cm correlating with cyst noted on MRI. No other renal masses are seen. No calculi or hydronephrosis is identified. Partially filled urinary bladder is unremarkable. Bilateral jets were visualized. IMPRESSION: Simple appearing left renal cyst. The study is otherwise unremarkable. Dictated by: Dictated on workstation # [id number]
== END ==
LOC: RAD 12:25
PROVIDERS: ATTEND Family Medicine
DX: N28.1 Cyst of kidney, acquired (principal)
CPT/HCPCS: 76770

== ENCOUNTER → 2018-08-06 | Outpatient (CLI) | payer MEDICARE ==
--- NOTE | 2018-08-06 12:33 | Diagnostic Imaging Report ---
Indication: Routine screening. Comparison is made with prior mammogram from 07/22/2017 and 11/10/2015. 2-D and 3-D bilateral screening mammography was performed with CAD. Scattered fibroglandular densities are identified bilaterally. Benign secretory type calcifications are noted bilaterally. Benign-appearing nodular density outer right breast appears stable. No mass or malignant appearing microcalcifications are seen. Axillae are unremarkable. Impression: BI-RADS category 2. No mammographic features suspicious for malignancy are identified. ACR BI-RADS Category 2: Benign findings. Result letter will be mailed to the patient. Note: At least 10% of breast cancer is not imaged by mammography. Dictated by: Dictated on workstation # [id number]
== END ==
LOC: RAD 09:55
PROVIDERS: ATTEND Family Medicine
DX: Z12.31 Encounter for screening mammogram for malignant neoplasm of breast (principal)
CPT/HCPCS: 77067

== ENCOUNTER → 2018-08-27 | Outpatient (CLI) | payer MEDICARE ==
[~2018-08-27] MED LIST changes: +RT-ALBUTEROL SULF 2.5 MG/3 ML PRE-MIX VIAL INH ONE
== END ==
LOC: RT 12:21
PROVIDERS: ATTEND Nurse Practitioner Family
DX: G47.33 Obstructive sleep apnea (adult) (pediatric) (principal); J43.8 Other emphysema; J45.909 Unspecified asthma, uncomplicated
CPT/HCPCS: 94060; 94640; 94726; 94729

== ENCOUNTER 2019-02-25 06:17 | Outpatient (CLI) | payer MEDICARE ==
[~2019-02-25] VITALS: Ht 162 cm; Wt 90.4 kg
[~2019-02-25 06:17] MED LIST changes: +OMEP20CA13 PO; -RT-ALBUTEROL SULF 2.5 MG/3 ML PRE-MIX VIAL INH ONE
[2019-02-26] MEDS ORDERED: GABA-488 PO (09:16)
[2019-02-26] MEDS ORDERED: TURM500C4 PO (09:16)
[2019-02-26] MEDS ORDERED: CYCL1DRO OP (09:16)
[2019-02-26] MEDS ORDERED: GLUC-235 PO (09:16)
[2019-02-26] MEDS ORDERED: MAGN400C PO (09:16)
[2019-02-26] MEDS ORDERED: CALC-823 PO (09:16)
[2019-02-26] MEDS ORDERED: DICL75TA2 PO (09:16)
[2019-02-26] MEDS ORDERED: OMEP40CA36 PO (09:16)
[2019-02-26] MEDS ORDERED: ZINC30CA PO (09:16)
[2019-02-26] MEDS ORDERED: POTA-51 PO (09:18)
[2019-02-26] MEDS ORDERED: BUME1TAB8 PO (09:18)
[2019-02-26] MEDS ORDERED: METO-395 PO (09:18)
== END 2019-02-26 09:27 ==
LOC: PREOP 06:17
PROVIDERS: ATTEND Specialist
DX: Z01.818 Encounter for other preprocedural examination (principal)

== ENCOUNTER 2019-02-27 10:00 | Day surgery (SDC) | payer MEDICARE ==
[~2019-02-27] VITALS: Ht 162 cm; Wt 90.4 kg
[~2019-02-27 10:00] MED LIST changes: +BUME1TAB8 PO; +CALC-823 PO; +CYCL1DRO OP; +GABA-488 PO; +GLUC-235 PO; +MAGN400C PO; +METO-395 PO; +OMEP40CA36 PO; +POTA-51 PO; +TURM500C4 PO; +ZINC30CA PO
[2019-02-27 10:05] VITALS: BP 178/71
[2019-02-27] MEDS ORDERED: TIMOLOL MALEATE 0.5% 5 ML (TIMOPTIC) BTL OU PRN (10:15)
[2019-02-27] MEDS ORDERED: POVIDONE (BETADINE) OPHTH SOLN 5% 30 ML OP ONE (10:15)
[2019-02-27] MEDS ORDERED: MOXIFLOXACIN OPHTH SOLN 5 MG/ML 0.3 ML SYRINGE OP ONE (10:15)
[2019-02-27] MEDS ORDERED: LIDOCAINE PF 1% 2 ML AMP IR PRN (10:15)
[2019-02-27] MEDS: TETRACAINE 0.5% OPHTH SOLN 4 ML BTL (SINGLE DOSE ONLY) OU PRN ×4 (10:32→11:00)
[2019-02-27] MEDS: PHENYLEPHRINE 10% OPHTH (NEO-SYN) 5 ML BTL OU SCH ×3 (10:45→11:00)
[2019-02-27] MEDS: CYCLOPENTOLATE 1% (CYCLOGYL) 2 ML DROPS OP SCH ×3 (10:45→11:00)
--- NOTE | 2019-02-27 10:51 | Ophthalmologist Pre-Op Note ---
Pre-Operative Progress Note H&P Reviewed The H&P was reviewed, patient examined and no changes noted. Date H&P Reviewed: Feb 27, 2019 Time H&P Reviewed: 10:51 Pre-Op Dx Cataract, Right Eye VANDANA YOUNG MD Feb 27, 2019 10:51 POS
[2019-02-27] MEDS ORDERED: MIDAZOLAM 2 MG/2 ML (VERSED) VIAL ONE (11:03)
--- NOTE | 2019-02-27 11:20 | Ophthalmology Operative Report ---
Cataract removal/placement IOL PREOPERATIVE DIAGNOSIS: Cataract Right Eye POSTOPERATIVE DIAGNOSIS: Cataract Right Eye PROCEDURE: Cataract removal and placement of posterior chamber implant, right eye SURGEON: Alden Young ANESTHESIA: Topical with sedation COMPLICATIONS: None ESTIMATED BLOOD LOSS: Minimal DESCRIPTION OF PROCEDURE: After proper informed consent was obtained, the patient, a 68 female, was taken to the Operating Room and the right eye was anesthetized with tetracaine. The right eye was then prepped and draped in the usual manner. A wire lid speculum was placed. A paracentesis was made at the left hand position. Preservative free lidocaine was injected into the anterior chamber followed by viscoelastic. A clear corneal incision was made in the temporal position. A capsulorrhexis was preformed and the central nuclear and cortical material were removed. The posterior capsule was polished and Conner AU00T0 21.5 IOL was placed into the capsular bag. The residual viscoelastic was aspirated and balanced saline solution was injected into the anterior chamber. Moxifloxacin was injected into the anterior chamber. The wound was checked and found to be water tight. The patient tolerated the procedure well without complications. ALDEN YOUNG MD Feb 27, 2019 11:20 POS
[2019-02-27 11:27] VITALS: BP 168/72
[2019-02-27] MEDS ORDERED: acetaZOLAMIDE ER 500 MG CAP (DIAMOX SEQUELS) PO ONE (11:30)
--- NOTE | 2019-02-27 12:43 | Anesthesia-General Post-Op ---
MAC Patient Condition Mental Status/LOC: Same as Preop Cardiovascular: Satisfactory Nausea/Vomiting: Absent Respiratory: Satisfactory Pain: Controlled Complications: Absent Post Op Complications Complications None Follow Up Care/Instructions Patient Instructions None needed. Anesthesiology Discharge Order Discharge Order Patient is doing well, no complaints, stable vital signs, no apparent adverse anesthesia problems. No complications reported per nursing. LOLI MERCEDES CRNA Feb 27, 2019 12:43 POS
== END 2019-02-27 11:27 | disposition home or self-care (01) ==
LOC: SDC 10:00
PROVIDERS: ATTEND Specialist
DX: H25.11 Age-related nuclear cataract, right eye (principal); J44.9 Chronic obstructive pulmonary disease, unspecified; M19.90 Unspecified osteoarthritis, unspecified site; E03.9 Hypothyroidism, unspecified; F41.9 Anxiety disorder, unspecified; Z87.891 Personal history of nicotine dependence; Z88.8 Allergy status to other drugs, medicaments and biological substances; Z91.040 Latex allergy status; Z79.899 Other long term (current) drug therapy; Z90.710 Acquired absence of both cervix and uterus; Z90.89 Acquired absence of other organs; Z96.641 Presence of right artificial hip joint; Z83.3 Family history of diabetes mellitus; Z80.8 Family history of malignant neoplasm of other organs or systems

== ENCOUNTER 2019-03-17 05:33 | Outpatient (CLI) | payer MEDICARE ==
[~2019-03-17] VITALS: Ht 162 cm; Wt 90.4 kg
== END 2019-03-17 12:24 | disposition home or self-care (01) ==
LOC: PREOP 05:33
PROVIDERS: ATTEND Specialist
DX: Z01.818 Encounter for other preprocedural examination (principal)

== ENCOUNTER 2019-03-20 09:27 | Day surgery (SDC) | payer MEDICARE ==
[~2019-03-20] VITALS: Ht 162 cm; Wt 90.4 kg
[2019-03-20] MEDS: TETRACAINE 0.5% OPHTH SOLN 4 ML BTL (SINGLE DOSE ONLY) OU PRN ×4 (09:40→10:03)
[2019-03-20] MEDS ORDERED: LIDOCAINE PF 1% 2 ML VIAL IR PRN (09:45)
[2019-03-20] MEDS ORDERED: POVIDONE (BETADINE) OPHTH SOLN 5% 30 ML OP ONE (09:45)
[2019-03-20] MEDS ORDERED: TIMOLOL MALEATE 0.5% 5 ML (TIMOPTIC) BTL OU PRN (09:45)
[2019-03-20] MEDS ORDERED: MOXIFLOXACIN OPHTH SOLN 5 MG/ML 0.3 ML SYRINGE OP ONE (09:45)
[2019-03-20] MEDS ORDERED: acetaZOLAMIDE ER 500 MG CAP (DIAMOX SEQUELS) PO ONE (09:45)
[2019-03-20] MEDS: CYCLOPENTOLATE 1% (CYCLOGYL) 2 ML DROPS OP SCH ×3 (09:52→10:03)
[2019-03-20] MEDS: PHENYLEPHRINE 10% OPHTH (NEO-SYN) 5 ML BTL OU SCH ×3 (09:52→10:03)
--- NOTE | 2019-03-20 09:57 | Ophthalmologist Pre-Op Note ---
Pre-Operative Progress Note H&P Reviewed The H&P was reviewed, patient examined and no changes noted. Date H&P Reviewed: Mar 20, 2019 Time H&P Reviewed: 09:57 Pre-Op Dx Cataract, Left Eye VANDANA YOUNG MD Mar 20, 2019 09:57
[2019-03-20 10:00] VITALS: BP 145/61
[2019-03-20] MEDS ORDERED: MIDAZOLAM 2 MG/2 ML (VERSED) VIAL ONE (10:00)
--- NOTE | 2019-03-20 10:24 | Ophthalmology Operative Report ---
Cataract removal/placement IOL PREOPERATIVE DIAGNOSIS: Cataract Left Eye POSTOPERATIVE DIAGNOSIS: Cataract Left Eye PROCEDURE: Cataract removal and placement of posterior chamber implant, left eye SURGEON: Alden Young ANESTHESIA: Topical with sedation COMPLICATIONS: None ESTIMATED BLOOD LOSS: Minimal DESCRIPTION OF PROCEDURE: After proper informed consent was obtained, the patient, a 68 female, was taken to the Operating Room and the left eye was anesthetized with tetracaine. The left eye was then prepped and draped in the usual manner. A wire lid speculum was placed. A paracentesis was made at the left hand position. Preservative free lidocaine was injected into the anterior chamber followed by viscoelastic. A clear corneal incision was made in the temporal position. A capsulorrhexis was preformed and the central nuclear and cortical material were removed. The posterior capsule was polished and an Conner 21.5 AU00T0 was placed into the capsular bag. The residual viscoelastic was aspirated and balanced saline solution was injected into the anterior chamber. Moxifloxacin was injected into the anterior chamber. The wound was checked and found to be water tight. The patient tolerated the procedure well without complications. ALDEN YOUNG MD Mar 20, 2019 10:24
[2019-03-20 10:30] VITALS: BP 162/57
--- NOTE | 2019-03-20 11:12 | Anesthesia-General Post-Op ---
MAC Patient Condition Mental Status/LOC: Same as Preop Cardiovascular: Satisfactory Nausea/Vomiting: Absent Respiratory: Satisfactory Pain: Controlled Complications: Absent Post Op Complications Complications None Follow Up Care/Instructions Patient Instructions None needed. Anesthesiology Discharge Order Discharge Order Patient was seen this morning after the procedure and she was doing well, no complaints, stable vital signs, no apparent adverse anesthesia problems. JAMI CAVAZOS DO Mar 20, 2019 11:12
== END 2019-03-20 10:30 | disposition home or self-care (01) ==
LOC: SDC 09:27
PROVIDERS: ATTEND Specialist
DX: H25.12 Age-related nuclear cataract, left eye (principal); J44.9 Chronic obstructive pulmonary disease, unspecified; E03.9 Hypothyroidism, unspecified; E66.9 Obesity, unspecified; F41.9 Anxiety disorder, unspecified; Z91.040 Latex allergy status; Z79.899 Other long term (current) drug therapy; Z88.8 Allergy status to other drugs, medicaments and biological substances; Z87.891 Personal history of nicotine dependence; Z68.34 Body mass index [BMI] 34.0-34.9, adult; Z96.641 Presence of right artificial hip joint; Z68.43 Body mass index [BMI] 50.0-59.9, adult; Z90.710 Acquired absence of both cervix and uterus; Z80.8 Family history of malignant neoplasm of other organs or systems; Z83.3 Family history of diabetes mellitus

== ENCOUNTER → 2019-08-28 | Outpatient (CLI) | payer MEDICARE ==
[~2019-08-28] MED LIST changes: -CETI10TA20 PO; +CETI10TA21 PO; -LISI1TAB10 PO; +LISI1TAB26 PO; -METO-395 PO; +MTP100TCR PO; -OMEP20CA13 PO; +OMEP20CA18 PO; +OMEP40CA27 PO; -OMEP40CA36 PO
--- NOTE | 2019-08-28 10:06 | Diagnostic Imaging Report ---
PROCEDURE: US Renal Bilateral. TECHNIQUE: Multiple real-time grayscale images were obtained over the kidneys in various projections bilaterally. INDICATION: Left renal cyst. Correlation is made with prior renal ultrasound from 06/16/2018. Right kidney measures 10.1 x 4.8 x 5.2 cm and the left kidney measures 11.4 x 6.1 x 6.1 cm. Cortical thickness and echogenicity is normal. The cyst mid left kidney measures 3.3 x 3.4 x 3.1 cm. This compares with 2.5 x 2.4 x 2.8 cm on prior exam. No calculi or hydronephrosis is seen. Bladder is decompressed. IMPRESSION: Mild increase in size of simple appearing left renal cyst when compared with examination one year earlier. Dictated by: Dictated on workstation # [id number]
--- NOTE | 2019-08-28 11:43 | Diagnostic Imaging Report ---
INDICATION: Routine screening. Comparison is made with prior mammogram from 08/06/2018 and 07/22/2017. 2-D and 3-D bilateral screening mammography was performed with CAD. Scattered fibroglandular densities are identified bilaterally. Diffuse bilateral benign calcifications again noted. There are nodular densities which appear stable. No spiculated mass or malignant appearing microcalcifications are seen. Axillae are unremarkable. IMPRESSION: BI-RADS Category 2 No mammographic features suspicious for malignancy are identified. ACR BI-RADS Category 2: Benign findings. Result letter will be mailed to the patient. Note: At least 10% of breast cancer is not imaged by mammography. Dictated by: Dictated on workstation # [id number]
== END ==
LOC: RAD 09:09
PROVIDERS: ATTEND Family Medicine
DX: Z12.31 Encounter for screening mammogram for malignant neoplasm of breast (principal); N28.1 Cyst of kidney, acquired
CPT/HCPCS: 76770; 77063; 77067

== ENCOUNTER → 2020-07-01 | Outpatient (CLI) | payer MEDICARE ==
[~2020-07-01] MED LIST changes: -CETI10TA21 PO; +CETI10TA49 PO; -PANT40TA3 PO; +PANT40TA52 PO
--- NOTE | 2020-07-01 14:28 | Diagnostic Imaging Report ---
PROCEDURE: US Renal Bilateral. TECHNIQUE: Multiple real-time grayscale images were obtained over the kidneys in various projections bilaterally. INDICATION: Left renal cyst, follow-up. COMPARISON: Correlation is made with prior ultrasound from 08/28/2019. FINDINGS: Right kidney measures 10.5 x 4.9 x 3.9 cm and left kidney measures 11.4 x 5.4 x 4.7 cm. Cyst in the midportion of the left kidney measures approximately 3.6 x 3.7 x 4.4 cm. This compares with 3.3 x 3.4 x 3.1 cm on prior. Cortical thickness and echogenicity is normal. There is no calculi or hydronephrosis. Bladder is decompressed. IMPRESSION: Left renal cyst measuring slightly larger when compared with prior exam from 08/28/2019. Dictated by: Dictated on workstation # [id number]
== END ==
LOC: RAD 12:47
PROVIDERS: ATTEND Family Medicine
DX: N28.1 Cyst of kidney, acquired (principal)
CPT/HCPCS: 76770

== ENCOUNTER → 2020-08-29 | Outpatient (CLI) | payer MEDICARE ==
--- NOTE | 2020-08-30 12:33 | Diagnostic Imaging Report ---
INDICATION: Routine screening. Comparison is made with prior mammogram from 08/28/2019 and 08/06/2018. 2-D and 3-D bilateral screening mammography was performed with CAD. Both breasts are heterogeneously dense, limiting the sensitivity of mammography. Benign calcifications throughout both breasts are again noted. Overall parenchymal pattern is stable. No spiculated mass or malignant appearing microcalcifications are seen. Axillae are unremarkable. IMPRESSION: BI-RADS Category 2 No mammographic features suspicious for malignancy are identified. ACR BI-RADS Category 2: Benign findings. Result letter will be mailed to the patient. Note: At least 10% of breast cancer is not imaged by mammography. Dictated by: Dictated on workstation # [id number]
== END ==
LOC: RAD 14:30
PROVIDERS: ATTEND Family Medicine
DX: Z12.31 Encounter for screening mammogram for malignant neoplasm of breast (principal)
CPT/HCPCS: 77063; 77067

== ENCOUNTER → 2020-09-09 | Outpatient (CLI) | payer MEDICARE ==
[~2020-09-09] MED LIST changes: -OMEP40CA27 PO; +OMEP40CA6 PO
--- NOTE | 2020-09-09 12:38 | Diagnostic Imaging Report ---
INDICATION: Neck pain. COMPARISON: None FINDINGS: Frontal, lateral, and open-mouth radiographic views of the cervical spine were obtained. Cervical spine is seen on C7-T1 level on the lateral view. Evaluation of static alignment shows slight grade 1 anterolisthesis at C3-C4 and C4-C5. There is also slight grade 1 retrolisthesis at C5-C6. There is no evidence of jumped facets. Open-mouth view demonstrates normal C1-C2 alignment. Vertebral body heights are maintained. There is no acute fracture. There are moderate multilevel degenerative changes consistent with intervertebral disc height loss with anterior and posterior disc osteophyte complex formations. These changes are greatest at C5-C6 level. There is also multilevel facet arthropathy, right greater than left. These changes are greatest at C4-C5. Included portions lung apices are clear. Surrounding soft tissue structures are unremarkable. IMPRESSION: 1. No acute fracture or dislocation of the cervical spine. 2. Moderate multilevel degenerative changes. Dictated by: Dictated on workstation # [id number]
== END ==
LOC: RAD 09:26
PROVIDERS: ATTEND Family Medicine
DX: M47.812 Spondylosis without myelopathy or radiculopathy, cervical region (principal)
CPT/HCPCS: 72040

== ENCOUNTER 2021-02-15 13:43 | Outpatient (RCR) | payer MEDICARE ==
[~2021-02-15 13:43] MED LIST changes: -LISI1TAB26 PO; +LISI1TAB48 PO
== END 2021-02-15 14:25 | disposition home or self-care (01) ==
PROVIDERS: ATTEND Nurse Practitioner Family
DX: J44.9 Chronic obstructive pulmonary disease, unspecified (principal); I10 Essential (primary) hypertension

== ENCOUNTER 2021-03-20 05:48 | Outpatient (CLI) | payer MEDICARE ==
[~2021-03-20] VITALS: Ht 154.9 cm; Wt 95.7 kg
[2021-03-20] MEDS ORDERED: FLUT1DIS28 IH (12:27)
[2021-03-20] MEDS ORDERED: DOXA4TAB PO (12:27)
[2021-03-20] MEDS ORDERED: CETI10CA PO (12:27)
[2021-03-20] MEDS ORDERED: HYDR25TA4 PO (12:27)
== END 2021-03-20 15:54 | disposition home or self-care (01) ==
LOC: PREOP 05:48
PROVIDERS: ATTEND Surgery
DX: Z01.818 Encounter for other preprocedural examination (principal)

== ENCOUNTER 2021-03-28 08:51 | Day surgery (SDC) | payer MEDICARE ==
[~2021-03-28] VITALS: Ht 154 cm; Wt 94.0 kg
[~2021-03-28 08:51] MED LIST changes: +CETI10CA PO; +DOXA4TAB PO; +FLUT1DIS28 IH; +HYDR25TA4 PO
[2021-03-28] MEDS ORDERED: LACTATED RINGERS 1,000 ML IV STA (08:53)
[2021-03-28] MEDS ORDERED: LACTATED RINGERS 1,000 ML IV ONE (09:02)
[2021-03-28 09:05] VITALS: BP 156/66
[2021-03-28] MEDS ORDERED: PROPOFOL INJECTION 50 ML IV ONE (09:53)
[2021-03-28] MEDS ORDERED: ONDANSETRON 4 MG/2 ML (SDV) Z0FRAN ONE (09:53)
[2021-03-28] MEDS ORDERED: MIDAZOLAM 2 MG/2 ML (VERSED) VIAL ONE (09:53)
[2021-03-28] MEDS ORDERED: FAMOTIDINE 20MG/2ML IV (PEPCID) ONE (09:54)
--- NOTE | 2021-03-28 09:55 | Progress Note-Pre Operative ---
Pre-Operative Progress Note H&P Reviewed The H&P was reviewed, patient examined and no changes noted. Date Seen by Provider: Mar 28, 2021 Time Seen by Provider: 09:55 Date H&P Reviewed: Mar 28, 2021 Time H&P Reviewed: 09:55 Pre-Operative Diagnosis: altered bowel function ARUNA KING DO Mar 28, 2021 09:55
--- NOTE | 2021-03-28 10:36 | Progress Note-Post Operative ---
Post-Operative Progess Note Surgeon (s)/Cattle Feeder (s) Surgeon ARUNA KING DO Cattle Feeder: na Pre-Operative Diagnosis altered bowel function Post-Operative Diagnosis Colon polyp Diverticulosis Procedure & Operative Findings Date of Procedure 03/28/21 Procedure Performed/Findings Colonoscopy c hot bx polypectomy x 1 and random cold biopsies Anesthesia Type per blow molder Estimated Blood Loss Estimated blood loss (mL): none Specimens/Packing Specimens Removed colon polyp, random colon ARUNA KING DO Mar 28, 2021 10:35
[2021-03-28 10:37] VITALS: BP 134/66
[2021-03-28 10:40] VITALS: BP 131/60
--- NOTE | 2021-03-28 10:40 | Discharge Inst-Simple/Standard ---
Discharge Inst-Standard Patient Instructions/Follow Up Plan of Care/Instructions/FU: 2 weeks Faustino Activity as Tolerated: Yes Discharge Diet: Regular Diet (high fiber) ARUNA KING DO Mar 28, 2021 10:40
[2021-03-28 11:25] VITALS: BP 125/61
--- NOTE | 2021-03-28 13:22 | Anesthesia-General Post-Op ---
MAC Patient Condition Mental Status/LOC: Same as Preop Cardiovascular: Satisfactory Nausea/Vomiting: Absent Respiratory: Satisfactory Pain: Controlled Complications: Absent Post Op Complications Complications None Follow Up Care/Instructions Patient Instructions None needed. Anesthesiology Discharge Order Discharge Order Patient is doing well, no complaints, stable vital signs, no apparent adverse anesthesia problems. No complications reported per nursing. OWEN GUARDADO CRNA Mar 28, 2021 13:22
--- NOTE | 2021-03-28 15:29 | OPERATIVE REPORT ---
DATE OF SERVICE: 03/28/2021 PREOPERATIVE DIAGNOSIS: Altered bowel function. POSTOPERATIVE DIAGNOSES: Colon polyp, descending colon, minimal diverticulosis. PROCEDURES PERFORMED: Colonoscopy with hot biopsy polypectomy x1 and random cold biopsies. SURGEON: Aruna Harmon DO. ANESTHESIA: Per MECH[employer]IC [employer] WELDER. ESTIMATED BLOOD LOSS: None. COMPLICATIONS: None. INDICATIONS FOR PROCEDURE: The patient is a 70-year-old female with altered bowel function and diarrhea. She understands the risks and benefits of the procedure and wishes to proceed. Consent was signed in the chart. DESCRIPTION OF PROCEDURE: The patient was taken to the endoscopy suite and placed in a left lateral recumbent position. A timeout was performed. Digital rectal exam was performed. No palpable polyps, masses or ulcerations. Scope was inserted in the rectum and advanced all the way to the cecum with minimal difficulty. No polyps, masses or ulcerations within the cecum, ascending, and transverse colon. In the descending colon, a small polyp was present, which hot biopsy polypectomy was performed. Scope was then continuously and slowly retracted back to the sigmoid colon without any other pathology except for some minimal diverticulosis. Scope was continued to be retracted back into the rectum, where it was also retroflexed noting no other pathology. As the scope was being retracted throughout the colon, random cold biopsies were obtained. Scope was then slowly retracted back until completely removed, noting no other pathology. The patient tolerated the procedure well without any complications. She was taken to the recovery room in stable condition. RECOMMENDATIONS: I would recommend repeat colonoscopy in 5 years if benefits outweigh the risk, but due to age, likely would not need any further colonoscopies. The patient will follow up on pathology in a couple of weeks to see if any cause of the altered bowel function. Any change in condition, the patient should be reevaluated at that time. Job ID: [id number] DocumentID: [id number] Dictated Date: 03/28/2021 10:38:27 Optical Scientist Date: 03/28/2021 15:28:34 Dictated By: ARUNA HARMON DO
== END 2021-03-28 11:28 | disposition home or self-care (01) ==
LOC: ENDO 08:51
PROVIDERS: ATTEND Surgery
DX: K63.5 Polyp of colon (principal); K57.30 Diverticulosis of large intestine without perforation or abscess without bleeding; I10 Essential (primary) hypertension; J44.9 Chronic obstructive pulmonary disease, unspecified; E07.9 Disorder of thyroid, unspecified; K21.9 Gastro-esophageal reflux disease without esophagitis; Z87.891 Personal history of nicotine dependence; Z79.890 Hormone replacement therapy; Z79.899 Other long term (current) drug therapy; Z91.040 Latex allergy status
CPT/HCPCS: 88305

== ENCOUNTER → 2021-07-05 | Outpatient (CLI) | payer MEDICARE ==
--- NOTE | 2021-07-05 16:17 | Diagnostic Imaging Report ---
PROCEDURE: US Renal Bilateral. TECHNIQUE: Multiple real-time grayscale images were obtained over the kidneys in various projections bilaterally. INDICATION: Renal cyst. COMPARISON: Correlation is made with prior ultrasound from 07/01/2020. FINDINGS: Right kidney measures 10.4 x 5.3 x 5.8 cm, and left kidney measures 9.8 x 5.6 x 4.6 cm. Cortical thickness and echogenicity are normal. No calculi are seen. There is no hydronephrosis. Cystic lesion in the mid left kidney measures 4.0 x 3.1 x 3.9 cm compared with approximately 3.6 x 3.7 x 4.4 cm. No new masses are seen. The ureteral jets were not visualized in the urinary bladder. IMPRESSION: Stable left renal cyst when compared with exam from 07/01/2020. Dictated by: Dictated on workstation # [id number]
== END ==
LOC: RAD 13:00
PROVIDERS: ATTEND Family Medicine
DX: N28.1 Cyst of kidney, acquired (principal)
CPT/HCPCS: 76770

== ENCOUNTER → 2021-12-14 | Outpatient (CLI) | payer MEDICARE | LOC: CARD 11:00 | PROVIDERS: ATTEND Internal Medicine Cardiovascular Disease | DX: I34.0 Nonrheumatic mitral (valve) insufficiency (principal) | CPT/HCPCS: 93306 ==

== ENCOUNTER → 2021-12-19 | Outpatient (CLI) | payer MEDICARE ==
[~2021-12-19] MED LIST changes: +REGADENOSON 0.4 MG/5 ML SYR (LEXISCAN) IV ONE
[2021-12-19] MEDS: CATHETER FLUSH 10 ML SYR IVP PRN ×2 (08:08→09:13)
[2021-12-19 09:11] VITALS: BP 143/68
--- NOTE | 2021-12-19 20:04 | STRESS TEST ---
DATE OF SERVICE: 12/19/2021 RESTING AND POST REGADENOSON TECHNETIUM-99M TETROFOSMIN SPECT CT IMAGING ORDERING PHYSICIAN: Dr. Arzate. PRIMARY PHYSICIAN: Dr. Manriquez. CLINICAL DIAGNOSIS: Fatigue. Baseline images were carried out after injection of 10.37 mCi of technetium-99m Tetrofosmin. This was followed by 0.4 mg regadenoson and 30.1 mCi of technetium-99m Tetrofosmin for stress imaging. The electrocardiogram showed sinus rhythm with nonspecific ST abnormality at baseline. They did not change significantly with the regadenoson infusion. The patient tolerated the procedure well. Review of images at rest and following stress indicate a moderate basal anteroseptal perfusion defect that appears to be transient. Gated images show normal global left ventricular systolic function with normal regional wall motion. Left ventricular ejection fraction is calculated to be 81%. CONCLUSIONS: 1. This test study is suggestive of a moderate amount of anteroseptal ischemia. 2. Normal regional wall motion. 3. Normal global left ventricular systolic function with a calculated ejection fraction of 81%. Job ID: [id number] DocumentID: [id number] Dictated Date: 12/19/2021 13:44:29 Concrete Smoother Date: 12/19/2021 20:03:25 Dictated By: HUGO ARZATE MD, MA, FACP, FACC,
== END ==
LOC: CARD 07:39
PROVIDERS: ATTEND Internal Medicine Cardiovascular Disease
DX: R53.83 Other fatigue (principal)
CPT/HCPCS: 78452; 93017; A9502

== ENCOUNTER 2021-12-26 17:27 | Day surgery (SDC) | payer MEDICARE ==
[2021-12-26] VITALS (23 sets, daily range): BP systolic 108–187; BP diastolic 43–89
[~2021-12-26] VITALS: Ht 154.9 cm; Wt 96.2 kg
[2021-12-26 08:41] LABS: HEMATOCRIT 36 % (35-52); HEMOGLOBIN 11.8 g/dL (11.5-16.0); MEAN CORPUSCULAR HEMOGLOBIN 30 pg (25-34); MEAN CORPUSCULAR HGB CONC 33 g/dL (32-36); MEAN CORPUSCULAR VOLUME 91 fL (80-99); MEAN PLATELET VOLUME 11.5 fL (9.0-12.2); PLATELET COUNT 182 10^3/uL (130-400); WHITE BLOOD COUNT 3.7 10^3/uL (4.3-11.0)
[2021-12-26 08:57] LABS: PROTHROMBIN TIME PATIENT 13.1 SEC (12.2-14.7)
[2021-12-26 09:03] LABS: BILIRUBIN,TOTAL 0.7 MG/DL (0.1-1.0); CALCIUM 9.5 MG/DL (8.5-10.1); CREATININE SERUM 0.78 MG/DL (0.60-1.30); POTASSIUM 3.7 MMOL/L (3.6-5.0); TOTAL PROTEIN 6.6 GM/DL (6.4-8.2)
--- NOTE | 2021-12-26 12:46 | Cardiac Procedure Note-CS/ASA ---
Pre-Procedure Note Pre-Op Procedure Note Date of Available H&P: Dec 08, 2021 Date H&P Reviewed: Dec 26, 2021 Time H&P Reviewed: 11:00 History & Physical: H&P Reviewed, Changes noted below Changes from last HP Subsequent stress test showed anterior ischemia Conscious Sedation Pre-Proced ASA Score 3 For ASA 3 and 4: Consider anesthesia and medical clearance. Also, for patients with a history of failed moderate sedation consider anesthesia. Airway Lungs Heart ASA score ASA 1: a normal healthy patient ASA 2: a patient with a mild systemic disease (mid diabetes, controlled hypertension, obesity ASA 3: a patient with a severe systemic disease that limits activity (angina, COPD, prior Myocardial infarction) ASA 4: a patient with an incapacitating disease that is a constant threat to life (CHF, renal failure) ASA 5: a moribund patient not expected to survive 24 hrs. (ruptured aneurysm) ASA 6: a declared brain- patient whose organs are being harvested. For emergent operations, add the letter E after the classification Mallampati Classification Grade 3 Sedation Plan Analgesia, Amnesia, Plan communicated to team members The patient is an appropriate candidate to undergo the planned procedure, sedation, and anesthesia. The patient immediately re-assessed prior to indication. HUGO LUCAS MD [facility] Dec 26, 2021 12:46
--- NOTE | 2021-12-26 12:49 | Discharge Inst-Post CATH ---
Discharge Inst-CATH/EP Post Cardiac Cath/EP D/C Inst Follow Up/Plan F/u with Dr Arzate in 2 weeks ACTIVITY * Go Home directly and rest. * Limit activity of the leg (or wrist if it was used) for 7 days including aerobics, swimming, jogging, bicycling, etc. * Restrict stair-climbing for 7 days if possible, if not, climb up with your non -cath leg, then bring together on the same step. * Avoid lifting, pushing, pulling or excessive movement of the affected extr emity for 7 days. * Customary sexual activity may be resumed after 2 days-use caution not to use a position that strains or causes pain to the affected extremity. * No driving for 24 hours. * NO SMOKING. * Avoid straining for bowel movements for 7 days. * Gentle walking on level ground is allowed. * Returning to work will depend on the type of procedure and the results. Your doctor will discuss this with you. CALL YOUR DOCTOR FOR ANY OF THE FOLLOWING: *If bleeding from the puncture site occurs- Apply gentle pressure to site with clean cloth and call your doctor or EMS. * If a knot or lump forms under the skin, increases in size, or causes pain. * If bruising appears to be worsening or moving further down your leg instead of disappearing. * Temperature above 101 F. CARE OF YOUR GROIN INCISION; * Bruising or purple discoloration of the skin near the puncture site is common. * You may shower only, no bathtub bathing for 5 days. Be careful to avoid slipping as your leg may feel stiff. * If a closure device was used on your femoral artery, please see the attached guide regarding care of the device and your leg. * Leave dressing on FOR 24 hours. CARE OF YOUR WRIST INCISION; * Bruising or purple discoloration of the skin near the puncture site is common. * You may shower. * DO NOT submerge wrist. * Leave dressing on FOR 24 hours. HUGO ARZATE MD [facility]S Dec 26, 2021 12:49
--- NOTE | 2021-12-26 12:50 | Discharge Inst-Cardiology ---
Discharge Inst-Cardiac Discharge Medications Continued Medications: Albuterol Sulfate (Ventolin Hfa) 1 Puff Puff 2 PUFF IH Q4H PRN for SHORTNESS OF BREATH, PUFF 1 PUFF = 90 MCG Calcium Carbonate (Calcium) 500 Mg Tablet 1000 MG PO DAILY, TAB Cetirizine HCl (Zyrtec) 10 Mg Capsule 10 MG PO DAILY, CAP Cholecalciferol (Vitamin D3) (Vitamin D3) 1,000 Unit Capsule 1000 UNIT PO DAILY, CAP Doxazosin Mesylate (Doxazosin Mesylate) 4 Mg Tablet 4 MG PO DAILY, TAB Fluticasone/Salmeterol (Advair 100-50 Diskus) 1 Each Blst.w.dev 1 EACH IH BID, EA Gabapentin (Gabapentin) 300 Mg Capsule 300 MG PO BID, CAP Garlic (Garlic) 1,000 Mg Capsule 2000 MG PO DAILY, CAP TAKES 2 (1000MG) CAPSULES Glucos Sul 2Kcl/MSM/Chond/C/Mn (Glucosamine Chondroitin Cap) 1 Each Capsule 1 EACH PO DAILY, CAP Hydrochlorothiazide (Hydrochlorothiazide) 25 Mg Tablet 25 MG PO DAILY, TAB Levothyroxine Sodium (Levothyroxine Sodium) 50 Mcg Tablet 50 MCG PO DAILY, TAB Magnesium Oxide (Magnesium) 400 Mg Capsule 400 MG PO DAILY, CAP Metoprolol Succinate (Metoprolol Succinate) 100 Mg Tab.er.24h 100 MG PO DAILY, TAB Montelukast Sodium (Singulair) 10 Mg Tablet 10 MG PO HS, TAB Omeprazole (Omeprazole) 40 Mg Capsule.dr 40 MG PO DAILY, CAP Potassium Chloride (Potassium Chloride) 20 Meq Tablet.er 20 MEQ PO DAILY, TAB Turmeric/Turmeric Root Extract (Turmeric 500 mg Capsule) 1 Each Capsule 1 EACH PO DAILY, CAP Zinc Gluconate-Zinc Picolinate (Zinc) 30 Mg Capsule 30 MG PO DAILY, HUGO SOLIMAN MD FACP [facility]AC CCDS Dec 26, 2021 12:49
--- NOTE | 2021-12-26 13:15 | CARDIAC CATHETERIZATION ---
DATE OF SERVICE: 12/26/2021 CARDIAC CATHETERIZATION REPORT The patient is a 71-year-old lady, who has had the symptoms of chest discomfort. Myocardial perfusion imaging was indicative of ischemia. Cardiac catheterization was carried out after the study had indicated a moderate amount of anteroseptal ischemia. Informed consent was obtained. DESCRIPTION OF PROCEDURE: [facility] in a fasting state. Right groin was prepared and draped in the usual sterile fashion. Lidocaine 1% was used for local anesthesia. Modified Seldinger technique was used to advance a 5-Qatari sheath in the right femoral artery, 5-Qatari JL4 catheter for left coronary angiography, 5-Qatari JR4 catheter was used for right coronary angiography, 5-Qatari pigtail catheter was used for left heart catheterization and left ventricular angiography. Angiography of the right femoral artery was carried out through the sheath. Mynx was used to achieve hemostasis. She tolerated the procedure well. HEMODYNAMICS: Left ventricular end-diastolic pressure following coronary angiography was 18 mmHg. There was no significant pressure gradient on pullback across the aortic valve. Ascending aortic pressure was 134/80 with a mean of 108 mmHg. CORONARY ANGIOGRAPHY: Left main coronary artery, left anterior descending artery, left circumflex artery, right coronary artery do not exhibit angiographically significant obstructive coronary artery disease. Right coronary artery is dominant. LEFT VENTRICULAR ANGIOGRAPHY: Left ventricular angiography was carried out in the right anterior oblique projection. Global left ventricular systolic function normal. No regional wall motion abnormalities seen in this view. Left ventricular ejection fraction is 65% to 70%. Incidentally noted is calcification of the aortic arch. CONCLUSIONS: 1. No angiographically significant coronary artery disease. 2. Normal global left ventricular systolic function with ejection fraction 65 to 70%. 3. Left ventricular end-diastolic pressure 18 mmHg. 4. Incidentally noted calcification of the aortic arch. DISCUSSION AND RECOMMENDATIONS: Based on results of the study, the stress test, what appears to have been false positive. Continuing risk factor modification is advised. Outpatient followup is advised. Job ID: [id number] DocumentID: [id number] Dictated Date: 12/26/2021 12:26:54 Boarding Specialist Date: 12/26/2021 13:14:07 Dictated By: HUGO LUCAS MD, MA, FACP, FACC,
[2021-12-26] MEDS: NS IV 1000 ML 1,000 ML IV SCH ×4 (16:50→20:43)
[~2021-12-26 17:27] MED LIST changes: +DOXA4TAB2 PO; +HEParin (CATH LAB) 2,000 ML IV ONE; +LIDOCAINE 1% INJ 30 ML (XYLOCAINE) VIAL ONE; +MIDAZOLAM 2 MG/2 ML (VERSED) VIAL ONE; +NS IV 1000 ML 1,000 ML IV SCH; +NS IV 1000 ML 1,000 ML ONE; +PATIENT MAY USE OWN MEDS, ALL PO SCH; -REGADENOSON 0.4 MG/5 ML SYR (LEXISCAN) IV ONE; +RT-ALBUTEROL SULF 2.5 MG/3 ML PRE-MIX VIAL IH PRN; +fentaNYL INJ 100 MCG/2 ML AMP ONE
[2021-12-26] MEDS ORDERED: RT-ALBUTEROL HFA 8.5 GM INHALER IH PRN (18:15)
[2021-12-26] MEDS ORDERED: doxAzosin 4 MG (CARDURA) TAB PO SCH (21:00)
[2021-12-26] MEDS ORDERED: ADVAIR HFA 230/21 MCG INHALER IH SCH (21:00)
[2021-12-26] MEDS ORDERED: MONTELUKAST 10 MG (SINGULAIR) TAB PO SCH (21:00)
[2021-12-26] MEDS ORDERED: GABAPENTIN 300 MG (NEURONTIN) CAP PO SCH (21:00)
[2021-12-27] VITALS: BP 124/49
[2021-12-27 02:00] VITALS: BP 109/42
[2021-12-27] MEDS: NS IV 1000 ML 1,000 ML IV SCH ×2 (02:33→04:27)
[2021-12-27 04:00] VITALS: BP 107/54
[2021-12-27 04:38] LABS: BASOPHILS % (AUTO) 1 % (0-10); EOSINOPHILS # (AUTO) 0.1 10^3/uL (0.0-0.3); EOSINOPHILS % (AUTO) 1 % (0-10); HEMATOCRIT 32 % (35-52); HEMOGLOBIN 10.5 g/dL (11.5-16.0); LYMPHOCYTES # (AUTO) 0.7 10^3/uL (1.0-4.0); LYMPHOCYTES % (AUTO) 18 % (12-44); MEAN CORPUSCULAR HEMOGLOBIN 30 pg (25-34); MEAN CORPUSCULAR HGB CONC 33 g/dL (32-36); MEAN CORPUSCULAR VOLUME 91 fL (80-99); MEAN PLATELET VOLUME 11.7 fL (9.0-12.2); MONOCYTES # (AUTO) 0.5 10^3/uL (0.0-1.0); MONOCYTES % (AUTO) 12 % (0-12); NEUTROPHILS # (AUTO) 2.7 10^3/uL (1.8-7.8); NEUTROPHILS % (AUTO) 68 % (42-75); PLATELET COUNT 162 10^3/uL (130-400)
[2021-12-27 05:00] LABS: ALBUMIN 3.5 GM/DL (3.2-4.5); POTASSIUM 3.8 MMOL/L (3.6-5.0)
[2021-12-27 05:01] LABS: CALCIUM 8.8 MG/DL (8.5-10.1)
[2021-12-27 05:03] LABS: TOTAL PROTEIN 5.6 GM/DL (6.4-8.2)
[2021-12-27 05:04] LABS: BILIRUBIN,TOTAL 0.5 MG/DL (0.1-1.0)
[2021-12-27 05:06] LABS: CREATININE SERUM 0.69 MG/DL (0.60-1.30)
[2021-12-27 05:09] LABS: MAGNESIUM 1.9 MG/DL (1.6-2.4)
[2021-12-27 06:00] VITALS: BP 122/53
[2021-12-27] MEDS ORDERED: LEVOTHYROXINE 50 MCG (LEVOTHROID) TAB PO SCH (06:30)
[2021-12-27] MEDS ORDERED: KCL 20 MEQ TAB (K-DUR) PO SCH (07:00)
--- NOTE | 2021-12-27 07:54 | Discharge Inst-Cardiology ---
Discharge Inst-Cardiac Discharge Medications Continued Medications: Albuterol Sulfate (Ventolin Hfa) 1 Puff Puff 2 PUFF IH Q4H PRN for SHORTNESS OF BREATH, PUFF 1 PUFF = 90 MCG Calcium Carbonate (Calcium) 500 Mg Tablet 1000 MG PO DAILY, TAB Cetirizine HCl (Zyrtec) 10 Mg Capsule 10 MG PO DAILY, CAP Cholecalciferol (Vitamin D3) (Vitamin D3) 1,000 Unit Capsule 1000 UNIT PO DAILY, CAP Doxazosin Mesylate (Doxazosin Mesylate) 4 Mg Tablet 4 MG PO DAILY, TAB Fluticasone/Salmeterol (Advair 100-50 Diskus) 1 Each Blst.w.dev 1 EACH IH BID, EA Gabapentin (Gabapentin) 300 Mg Capsule 300 MG PO BID, CAP Garlic (Garlic) 1,000 Mg Capsule 2000 MG PO DAILY, CAP TAKES 2 (1000MG) CAPSULES Glucos Sul 2Kcl/MSM/Chond/C/Mn (Glucosamine Chondroitin Cap) 1 Each Capsule 1 EACH PO DAILY, CAP Hydrochlorothiazide (Hydrochlorothiazide) 25 Mg Tablet 25 MG PO DAILY, TAB Levothyroxine Sodium (Levothyroxine Sodium) 50 Mcg Tablet 50 MCG PO DAILY, TAB Magnesium Oxide (Magnesium) 400 Mg Capsule 400 MG PO DAILY, CAP Montelukast Sodium (Singulair) 10 Mg Tablet 10 MG PO HS, TAB Omeprazole (Omeprazole) 40 Mg Capsule.dr 40 MG PO DAILY, CAP Potassium Chloride (Potassium Chloride) 20 Meq Tablet.er 20 MEQ PO DAILY, TAB Turmeric/Turmeric Root Extract (Turmeric 500 mg Capsule) 1 Each Capsule 1 EACH PO DAILY, CAP Zinc Gluconate-Zinc Picolinate (Zinc) 30 Mg Capsule 30 MG PO DAILY, CAP Discontinued Medications: Metoprolol Succinate (Metoprolol Succinate) 100 Mg Tab.er.24h 100 MG PO DAILY, TAB Patient Instructions Patient Instructions: Please schedule follow up appointment to be seen by Dr. Arzate next week Please go to office today to have external heart monitor placed No driving, operating heavy machinery, climbing ladders or participating in any activity that may cause harm to yourself or others ROBERT ALVARADO Dec 27, 2021 07:54
[2021-12-27 08:00] VITALS: BP 93/50
[2021-12-27] MEDS ORDERED: CALCIUM CARBONATE 600 MG (CALCARB) TAB PO SCH (08:00)
[2021-12-27] MEDS ORDERED: MAGNESIUM OXIDE (MAG-OX)400 MG TAB PO SCH (08:00)
[2021-12-27] MEDS ORDERED: LORATADINE (CLARITIN) 10 MG TAB PO SCH (09:00)
[2021-12-27] MEDS ORDERED: NON-FORMULARY MEDICATION 1 EA EA (Calcium Carbonate (Calcium) 1,000 MG) PO SCH (09:00)
[2021-12-27] MEDS ORDERED: NON-FORMULARY MEDICATION 1 EA EA (Omeprazole 40 MG) PO SCH (09:00)
[2021-12-27] MEDS ORDERED: VITAMIN D3 25 MCG (1,000 UNITS) TABLET PO SCH (09:00)
[2021-12-27] MEDS ORDERED: NON-FORMULARY MEDICATION 1 EA EA (Turmeric/Turmeric Root Extract (Turmeric 500 mg Capsule) PO SCH (09:00)
[2021-12-27] MEDS ORDERED: PANTOPRAZOLE 40 MG (PROTONIX) TAB PO SCH (09:00)
[2021-12-27] MEDS ORDERED: NON-FORMULARY MEDICATION 1 EA EA (Cetirizine HCl (Zyrtec) 10 MG) PO SCH (09:00)
[2021-12-27] MEDS ORDERED: OMEPRAZOLE 40 MG CAPSULE PO SCH (09:00)
[2021-12-27] MEDS ORDERED: ZINC GLUCONATE ZINC PICOLINATE 30 MG PO SCH (09:00)
[2021-12-27] MEDS ORDERED: NON-FORMULARY MEDICATION 1 EA EA (Magnesium Oxide (Magnesium) 400 MG) PO SCH (09:00)
[2021-12-27] MEDS ORDERED: NON-FORMULARY MEDICATION 1 EA EA (Potassium Chloride 20 MEQ) PO SCH (09:00)
[2021-12-27] MEDS ORDERED: doxAzosin 4 MG (CARDURA) TAB PO SCH (09:00)
[2021-12-27] MEDS ORDERED: GARLIC 2000 MG PO SCH (09:00)
[2021-12-27] MEDS ORDERED: NON-FORMULARY MEDICATION 1 EA EA (Cholecalciferol (Vitamin D3) (Vitamin D3) 1,000 UNIT) PO SCH (09:00)
[2021-12-27] MEDS ORDERED: MTP25TSR PO (10:45)
--- NOTE | 2021-12-27 12:08 | Progress Note - Cardiology ---
Cardiology SOAP Progress Note Subjective: Brief syncope when go up from the bed in anticipation of being discharged after cardiac cath on 12/26/21. Kept in the hospital overnight for observation. No recurrence of syncope since No cp or palp or shortness of breath No n/v/d No focal weakness No groin or leg discomfort Objective: I&O/Vital Signs 12/27/21 12/27/21 12/27/21 12/27/21 00:04 01:00 02:00 03:20 Temp 35.9 Pulse 56 53 Resp 21 B/P (MAP) 109/42 (71) Pulse Ox 93 93 O2 Delivery NIV CPAP Room Air 12/27/21 12/27/21 12/27/21 12/27/21 04:00 04:18 06:00 07:06 Temp 35.8 Pulse 56 53 57 Resp 20 18 B/P (MAP) 107/54 (63) 122/53 (80) Pulse Ox 93 95 O2 Delivery NIV CPAP NIV CPAP 12/27/21 12/27/21 08:00 08:00 Pulse 63 Resp 21 B/P (MAP) 93/50 (64) Pulse Ox 94 93 O2 Delivery NIV CPAP Room Air 12/27/21 00:00 Intake Total 450 ml Balance 450 ml Weight (Pounds): 190 Weight (Ounces): 0.0 Weight (Calculated Kilograms): [id number] Condition: DP/PT pulses palpable Device Insertion Site: without hematoma Bruising: mild bruising Constitutional: AAO x 3, well-developed, well-nourished Respiratory: No accessory muscle use; other (good, bilateral air entry) Cardiovascular: regular rate-rhythm, S1 and S2, systolic murmur (soft CRYSTAL at card base) Gastrointestional: No tender; soft; No guarding, No rebound; audible bowel sounds Extremities: No clubbing, No cyanosis, No significant edema Neurologic/Psychiatric: oriented x 3, other (moves all limbs equally) Skin: warm/dry; No cyanosis, No cool, No rash on exposed areas, No ulcerations on exposed areas Results/Procedures: Labs Laboratory Tests 12/27/21 04:20: White Blood Count 4.0L, Red Blood Count 3.55L, Hemoglobin 10.5L, Hematocrit 32L, Mean Corpuscular Volume 91, Mean Corpuscular Hemoglobin 30, Mean Corpuscular Hemoglobin Concent 33, Red Cell Distribution Width 14.9H, Platelet Count 162, Mean Platelet Volume 11.7, Immature Granulocyte % (Auto) 0, Neutrophils (%) (Auto) 68, Lymphocytes (%) (Auto) 18, Monocytes (%) (Auto) 12, Eosinophils (%) (Auto) 1, Basophils (%) (Auto) 1, Neutrophils # (Auto) 2.7, Lymphocytes # (Auto) 0.7L, Monocytes # (Auto) 0.5, Eosinophils # (Auto) 0.1, Basophils # (Auto) 0.0, Immature Granulocyte # (Auto) 0.0, Sodium Level 140, Potassium Level 3.8, Chloride Level 109H, Carbon Dioxide Level 23, Anion Gap 8, Blood Urea Nitrogen 16, Creatinine 0.69, Estimat Glomerular Filtration Rate 92, BUN/Creatinine Ratio 23, Glucose Level 101, Calcium Level 8.8, Corrected Calcium 9.2, Magnesium Level 1.9, Total Bilirubin 0.5, Aspartate Amino Transf (AST/SGOT) 43H, Alanine Aminot ransferase (ALT/SGPT) 39, Alkaline Phosphatase 102, Total Protein 5.6L, Albumin 3.5 Microbiology 12/26/21 MRSA Screen - Final, Complete MRSA not isolated Laboratory Tests 12/26/21 08:20 12/27/21 04:20 A/P: Assessment: Brief syncope on 12/26/21 when getting up from bed rest after card cath on 12/26/21 - no tachyarrhythmia seen - sinus bambi on tele - evidence of post-cath bleed - no recurrence of symptoms Nonspecific chest discomfort, noncardiac - Card cath of 06/25/17 after abn MPI on 06/11/17: no significant CAD, LVEF 65%, LVEF at top limit of normal - Echo of 06/10/17: LVEF 60-65%, grade I oakes dysfunction, mild MR, mild AoV sclerosis, PASP 35 mmHg - Card cath on 12/26/21: No angiographically significant coronary artery disease. Normal global left ventricular systolic function with ejection fraction 65 to 70%. Left ventricular end-diastolic pressure 18 mmHg. Incidentally noted calcification of the aortic arch. 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 TSH normal (2.03) on 05/29/17 H/o mild hyperlipidemia - managed by PCP Family h/o early CAD - 2 brothers have had cor stent Ortho - S/p lumbar spinal surgery in September 2019 Plan: * Reduce Toprol XL from 100 daily to 25 daily * Labs reviewed * Zio patch * No driving or operating machinery or climibing ladders, etc, until further re commendations * Close outpt f/u * Questions answered HUGO LUCAS MD FACP [facility]S Dec 27, 2021 12:08
== END 2021-12-27 11:00 | disposition home or self-care (01) ==
LOC: SDC 17:27 → ICU 17:27 → UNDOFXSDCACCOM 17:27 → UNDOFXSDCSVC 17:27 → UNDOEDSDCBED 17:27 → EDSDCBED 17:27 → CSDo 17:27
PROVIDERS: ATTEND Internal Medicine Cardiovascular Disease
DX: R07.89 Other chest pain (principal); R60.0 Localized edema; J44.9 Chronic obstructive pulmonary disease, unspecified; G47.33 Obstructive sleep apnea (adult) (pediatric); Z87.891 Personal history of nicotine dependence; E66.9 Obesity, unspecified; Z68.41 Body mass index [BMI] 40.0-44.9, adult; K44.9 Diaphragmatic hernia without obstruction or gangrene; I10 Essential (primary) hypertension; E03.9 Hypothyroidism, unspecified; R73.01 Impaired fasting glucose; E78.5 Hyperlipidemia, unspecified; I65.23 Occlusion and stenosis of bilateral carotid arteries
CPT/HCPCS: 80053 ×2; 80061; 83735; 85025; 85027; 85610; 85730; 87081; 93005; 93458; C1760; C1894; 36415

== ENCOUNTER → 2022-03-21 | Outpatient (CLI) | payer MEDICARE ==
[~2022-03-21] MED LIST changes: +CATHETER FLUSH 10 ML SYR IV PRN; -HEParin (CATH LAB) 2,000 ML IV ONE; +HOLD METFORMIN - RECEIVED CONTRAST 20 ML VIAL IV SCH; +IOHEXOL 350 MG/ML 100 ML (OMNIPAQUE 350) VIAL IV ONE; -LIDOCAINE 1% INJ 30 ML (XYLOCAINE) VIAL ONE; -MIDAZOLAM 2 MG/2 ML (VERSED) VIAL ONE; +MTP25TSR PO; +NS 100 ML (IVPB) BAG IV ONE; -NS IV 1000 ML 1,000 ML IV SCH; -NS IV 1000 ML 1,000 ML ONE; -PATIENT MAY USE OWN MEDS, ALL PO SCH; -RT-ALBUTEROL SULF 2.5 MG/3 ML PRE-MIX VIAL IH PRN; -fentaNYL INJ 100 MCG/2 ML AMP ONE
--- NOTE | 2022-03-21 13:21 | Diagnostic Imaging Report ---
PROCEDURE: CT chest with contrast only. TECHNIQUE: Multiple contiguous axial images were obtained through the chest after administration of intravenous contrast. Auto Exposure Controls were utilized during the CT exam to meet ALARA standards for radiation dose reduction. INDICATION: Cough and hoarseness. Symptoms since [facility]. Compared with a CT chest 10/03/2017. FINDINGS: There is no mediastinal adenopathy or mass. No paratracheal lesion. There is some aortic atherosclerotic vascular calcifications without its aneurysmal dilatation, dissection, rupture or intramural hematoma or stenosis. There is no pleural or pericardial effusion. No hilar adenopathy. The axilla, supraclavicular fossa and thoracic inlet appeared unremarkable. No airway embarrassment visualized. No endobronchial filling defect. There are few nonenlarged right hilar and subcarinal mediastinal lymph nodes on an old granulomatous basis. No soft tissue density irregular or suspicious lung mass. There is a benign granuloma in the right middle lobe. Trace bibasilar atelectasis. No effusion, pneumothorax or chest wall lesion. The visualized upper abdomen demonstrates a prior cholecystectomy. IMPRESSION: No acute or suspicious abnormality, benign granulomatous residual, minimal zones of atelectasis. No adenopathy or mediastinal mass. No endobronchial mass or filling defect. Dictated by: Dictated on workstation # [id number]
== END ==
LOC: RAD 12:05
PROVIDERS: ATTEND Nurse Practitioner Family
DX: R05.8 Other specified cough (principal); R49.0 Dysphonia; L92.9 Granulomatous disorder of the skin and subcutaneous tissue, unspecified
CPT/HCPCS: 71260